=== PATIENT | female | born 1980 | race Two or more races ===

== ENCOUNTER 2023-10-16 16:03 | Emergency (ER) | payer MEDICAID ==
[~2023-10-16] VITALS: Ht 170.2 cm; Wt 138.1 kg
[2023-10-16 20:52] VITALS: BP 116/66; PULSE 84; RESP 16; TEMP 98.6; O2SAT 94
== END 2023-10-16 20:52 | disposition home or self-care (01) ==
LOC: ER 16:03
DX: M25.562 Pain in left knee (principal); Z88.1 Allergy status to other antibiotic agents
CPT/HCPCS: 93971

== ENCOUNTER 2024-03-13 04:38 | Inpatient (IN) | payer MEDICAID ==
[~2024-03-13] VITALS: Ht 170.2 cm; Wt 133.7 kg
[2024-03-13] VITALS (7 sets, daily range): BP systolic 150–167; BP diastolic 87–102; PULSE 66–79; RESP 16–18; TEMP 97.6–98.2; O2SAT 94–97
[2024-03-13 05:39] LABS: Basophils # (auto) 0 10 ^3/uL (0-0.2); Basophils % (auto) 0.3 % (0.0-2.0); Monocytes # (auto) 0.6 10 ^3/uL (0-1.3)
[2024-03-13 05:40] LABS: Anion Gap 5 (5-15); Calcium 8.7 mg/dL (8.7-10.4); Carbon Dioxide 27 mmol/L (20-30); Chloride 108 mmol/L (98-107); Potassium 3.7 mmol/L (3.5-5.1); Sodium 140 mmol/L (136-145)
[2024-03-13 05:43] LABS: Eosinophils # (auto) 0.2 10 ^3/uL (0-0.8); Eosinophils % (auto) 2.8 % (0.0-7.0); Hematocrit 28.9 % (36.0-46.0); Hemoglobin 9.4 g/dL (12.2-16.2); Lymphocytes # (auto) 1.7 10 ^3/uL (0.4-5.4); Lymphocytes % (auto) 19.9 % (10.0-50.0); Mean Corpuscular Hemoglobin 24.2 pg (28.0-32.0); Mean Corpuscular Hgb Conc. 32.7 g/dL (32.0-36.0); Mean Corpuscular Volume 74.1 fL (80.0-100.0); Monocytes % (auto) 6.8 % (0.0-12.0); Neutrophils % (auto) 70.2 % (37.0-80.0); Red Blood Cells 3.89 10^6/uL (4.0-5.20); Red Cell Distribution Width 18.9 % (11.8-14.3); White Blood Cell 8.5 10^3/uL (4.4-10.8)
[2024-03-13 05:46] LABS: BUN/Creatinine Ratio 22.1 (10.0-20.0); Blood Urea Nitrogen 17 mg/dL (9-23); Glucose 85 mg/dL (74-106)
[2024-03-13] MEDS: FUROSEMIDE 20 MG/2 ML VIAL IV ONE (06:21)
[2024-03-13] MEDS ORDERED: SEMA2INJ3 SC (07:41)
[2024-03-13] MEDS ORDERED: IBUP-1454 PO (07:41)
[2024-03-13] MEDS ORDERED: GABA-1308 PO (07:41)
[2024-03-13] MEDS ORDERED: FERR1TAB31 PO (07:41)
[2024-03-13] MEDS ORDERED: NITROGLYCERIN 0.4 MG SL TAB SL PRN (09:45)
[2024-03-13] MEDS ORDERED: FUROSEMIDE 20 MG/2 ML VIAL IV SCH (10:00)
[2024-03-13 10:29] LABS: Folate (Folic Acid) 9.69 ng/mL (>5.38)
[2024-03-13 10:30] LABS: Ferritin 7.7 ng/mL (10-291)
[2024-03-13 10:31] LABS: Thyroid Stimulating Hormone 2.4 uIU/mL (0.55-4.78)
[2024-03-13 10:32] LABS: INR 1.05 (0.9-1.15); Prothrombin Time 11.1 sec (9.3-11.8)
[2024-03-13 10:50] LABS: % Iron Saturation 26.3 % (15-50)
[2024-03-13] MEDS: METOPROLOL TARTRATE 25 MG TAB PO SCH (11:45)
[2024-03-13] MEDS: ENOXAPARIN SOD 150 MG/1 ML SYRINGE SC SCH (11:45)
[2024-03-13 12:21] LABS: Triglycerides 73 mg/dL (< 150)
[2024-03-13 12:22] LABS: LDL Cholesterol 50 mg/dL (< 100)
[2024-03-13 12:23] LABS: Cholesterol 102 mg/dL (< 200); HDL Cholesterol 43 mg/dL (40-59)
[2024-03-13] MEDS: hydrALAZINE HCL 20 MG/ML VL IV PRN (14:26)
[2024-03-13] MEDS: FUROSEMIDE 20 MG/2 ML VIAL IV SCH (18:46)
[2024-03-13] MEDS: ATORVASTATIN 20 MG TAB PO SCH (20:42)
[2024-03-13] MEDS: SACUBITRIL-VALSARTAN 24mg/26mg TAB PO SCH (20:42)
[2024-03-13] MEDS: ASPirin 81 mg TAB PO ONE (22:00)
[2024-03-14] VITALS (8 sets, daily range): BP systolic 138–149; BP diastolic 65–97; PULSE 67–88; RESP 16–20; TEMP 97.5–98.8; O2SAT 92–98
[2024-03-14 07:51] LABS: Basophils # (auto) 0 10 ^3/uL (0-0.2); Basophils % (auto) 0.3 % (0.0-2.0); Eosinophils # (auto) 0.3 10 ^3/uL (0-0.8); Eosinophils % (auto) 2.7 % (0.0-7.0); Hematocrit 33.1 % (36.0-46.0); Hemoglobin 10.6 g/dL (12.2-16.2); Lymphocytes # (auto) 1.6 10 ^3/uL (0.4-5.4); Lymphocytes % (auto) 16.6 % (10.0-50.0); Mean Corpuscular Hemoglobin 23.9 pg (28.0-32.0); Mean Corpuscular Hgb Conc. 32.1 g/dL (32.0-36.0); Mean Corpuscular Volume 74.6 fL (80.0-100.0); Monocytes # (auto) 0.6 10 ^3/uL (0-1.3); Neutrophils # (auto) 7.4 10 ^3/uL (1.6-8.6); Neutrophils % (auto) 74.4 % (37.0-80.0); Red Blood Cells 4.44 10^6/uL (4.0-5.20); Red Cell Distribution Width 18.8 % (11.8-14.3); White Blood Cell 9.9 10^3/uL (4.4-10.8)
[2024-03-14 08:00] LABS: Alanine Aminotransferase 17 U/L (7-40); Albumin 3.5 g/dL (3.2-4.8); Alkaline Phosphatase 61 U/L (46-116); Anion Gap 6 (5-15); Aspartate Aminotransferase 17 U/L (13-40); BUN/Creatinine Ratio 17.9 (10.0-20.0); Blood Urea Nitrogen 15 mg/dL (9-23); Calcium 9.1 mg/dL (8.7-10.4); Carbon Dioxide 28 mmol/L (20-30); Chloride 105 mmol/L (98-107); Glucose 86 mg/dL (74-106); Potassium 3.7 mmol/L (3.5-5.1); Sodium 139 mmol/L (136-145)
[2024-03-14 08:01] LABS: Bilirubin, Total 0.7 mg/dL (0.2-1.0); Total Protein 7.6 g/dL (5.7-8.2)
[2024-03-14] MEDS: ASPirin 81 mg TAB PO SCH (08:42)
[2024-03-14] MEDS: EMPAGLIFLOZIN 10 MG TAB PO SCH (08:42)
[2024-03-14] MEDS: ENOXAPARIN SOD 40 MG/0.4 ML SYRINGE SC SCH (08:43)
[2024-03-14] MEDS: IOHEXOL 350 MG/ML 100ML IJ ONE (11:44)
[2024-03-15] VITALS (8 sets, daily range): BP systolic 103–145; BP diastolic 52–89; PULSE 70–89; RESP 17–20; TEMP 97.9–98.7; O2SAT 92–97
[2024-03-15 06:46] LABS: Basophils # (auto) 0 10 ^3/uL (0-0.2); Basophils % (auto) 0.3 % (0.0-2.0); Eosinophils # (auto) 0.2 10 ^3/uL (0-0.8); Eosinophils % (auto) 2.4 % (0.0-7.0); Lymphocytes # (auto) 1.9 10 ^3/uL (0.4-5.4); Monocytes # (auto) 0.8 10 ^3/uL (0-1.3); Neutrophils # (auto) 6.6 10 ^3/uL (1.6-8.6); White Blood Cell 9.5 10^3/uL (4.4-10.8)
[2024-03-15 06:50] LABS: Hematocrit 34.3 % (36.0-46.0); Hemoglobin 11.1 g/dL (12.2-16.2); Lymphocytes % (auto) 19.9 % (10.0-50.0); Mean Corpuscular Hemoglobin 24.5 pg (28.0-32.0); Mean Corpuscular Hgb Conc. 32.3 g/dL (32.0-36.0); Mean Corpuscular Volume 75.8 fL (80.0-100.0); Neutrophils % (auto) 69.4 % (37.0-80.0); Red Blood Cells 4.53 10^6/uL (4.0-5.20); Red Cell Distribution Width 18.5 % (11.8-14.3)
[2024-03-15 07:46] LABS: Alanine Aminotransferase 16 U/L (7-40); Albumin 3.2 g/dL (3.2-4.8); Alkaline Phosphatase 56 U/L (46-116); Anion Gap 6 (5-15); Aspartate Aminotransferase 13 U/L (13-40); Bilirubin, Total 0.7 mg/dL (0.2-1.0); Blood Urea Nitrogen 14 mg/dL (9-23); Calcium 8.8 mg/dL (8.7-10.4); Carbon Dioxide 27 mmol/L (20-30); Chloride 105 mmol/L (98-107); Glucose 89 mg/dL (74-106); Potassium 3.8 mmol/L (3.5-5.1); Sodium 138 mmol/L (136-145)
[2024-03-15 07:50] LABS: BUN/Creatinine Ratio 16.9 (10.0-20.0)
[2024-03-16] VITALS (12 sets, daily range): BP systolic 111–139; BP diastolic 64–91; PULSE 67–89; RESP 12–18; TEMP 98–98.2; O2SAT 93–97
[2024-03-16 06:05] LABS: Chloride 104 mmol/L (98-107); Potassium 3.4 mmol/L (3.5-5.1); Sodium 139 mmol/L (136-145)
[2024-03-16 06:06] LABS: Anion Gap 5 (5-15); Carbon Dioxide 30 mmol/L (20-30)
[2024-03-16 06:09] LABS: Basophils # (auto) 0 10 ^3/uL (0-0.2); Basophils % (auto) 0.3 % (0.0-2.0); Eosinophils # (auto) 0.2 10 ^3/uL (0-0.8); Eosinophils % (auto) 2.5 % (0.0-7.0); Hematocrit 35.4 % (36.0-46.0); Hemoglobin 11.5 g/dL (12.2-16.2); Lymphocytes # (auto) 1.7 10 ^3/uL (0.4-5.4); Lymphocytes % (auto) 18.1 % (10.0-50.0); Mean Corpuscular Hemoglobin 23.9 pg (28.0-32.0); Mean Corpuscular Hgb Conc. 32.5 g/dL (32.0-36.0); Mean Corpuscular Volume 73.5 fL (80.0-100.0); Monocytes # (auto) 0.8 10 ^3/uL (0-1.3); Monocytes % (auto) 8.4 % (0.0-12.0); Neutrophils # (auto) 6.6 10 ^3/uL (1.6-8.6); Neutrophils % (auto) 70.7 % (37.0-80.0); Red Blood Cells 4.82 10^6/uL (4.0-5.20); Red Cell Distribution Width 18.9 % (11.8-14.3); White Blood Cell 9.3 10^3/uL (4.4-10.8)
[2024-03-16 06:11] LABS: Glucose 98 mg/dL (74-106)
[2024-03-16 06:12] LABS: BUN/Creatinine Ratio 21.4 (10.0-20.0); Blood Urea Nitrogen 21 mg/dL (9-23)
[2024-03-16 06:18] LABS: INR 1.09 (0.9-1.15); Partial Thromboplastin Time 28.5 SEC (24.5-34.5); Prothrombin Time 11.5 sec (9.3-11.8)
[2024-03-16] MEDS: HEPARIN IN NS 1000Units/500mL 1,500 ML ONE (10:46)
[2024-03-16] MEDS: IODIXANOL 320MG/ML 100ML BTL IV ONE (10:46)
[2024-03-16] MEDS: VERAPAMIL 2.5MG/ML INJ 2ML VIAL IV ONE (11:46)
[2024-03-16] MEDS: MIDAZOLAM HCL 2MG/2ML 2ml VIAL (1mg/ml) ONE (11:46)
[2024-03-16] MEDS: ANGIOMAX 250 MG VIAL IV ONE (11:46)
[2024-03-16] MEDS: fentaNYL CITRATE 100 MCG/2 ML VL ONE (11:46)
[2024-03-16] MEDS: HEPARIN SODIUM (PORCINE) 5000 UNITS/ML 1ML VIAL ONE (11:46)
[2024-03-16] MEDS: LIDOCAINE 2%HCL (LOCAL ANESTH.) INJ 20ML MDV ONE (11:47)
[2024-03-16] MEDS: SODIUM CHL 0.9% 50 ML ONE (11:47)
[2024-03-16] MEDS: POTASSIUM CHL 20 Meq TABLET PO ONE (19:50)
[2024-03-16] MEDS: FUROSEMIDE 40 MG/4 ML VIAL IV SCH (19:50)
[2024-03-17 05:00] VITALS: BP 115/69; PULSE 71; RESP 18; TEMP 98.3; O2SAT 94
[2024-03-17 05:49] LABS: Basophils # (auto) 0 10 ^3/uL (0-0.2); Basophils % (auto) 0.3 % (0.0-2.0); Eosinophils # (auto) 0.3 10 ^3/uL (0-0.8); Eosinophils % (auto) 3.5 % (0.0-7.0); Hemoglobin 11.4 g/dL (12.2-16.2); Neutrophils # (auto) 5.8 10 ^3/uL (1.6-8.6)
[2024-03-17 05:51] LABS: Hematocrit 35.1 % (36.0-46.0); Lymphocytes # (auto) 1.9 10 ^3/uL (0.4-5.4); Lymphocytes % (auto) 21.5 % (10.0-50.0); Mean Corpuscular Hgb Conc. 32.6 g/dL (32.0-36.0); Mean Corpuscular Volume 73.8 fL (80.0-100.0); Monocytes # (auto) 0.8 10 ^3/uL (0-1.3); Monocytes % (auto) 8.6 % (0.0-12.0); Neutrophils % (auto) 66.1 % (37.0-80.0); Red Blood Cells 4.76 10^6/uL (4.0-5.20); Red Cell Distribution Width 19.2 % (11.8-14.3); White Blood Cell 8.8 10^3/uL (4.4-10.8)
[2024-03-17 06:08] LABS: Alanine Aminotransferase 22 U/L (7-40); Albumin 3.3 g/dL (3.2-4.8); Alkaline Phosphatase 56 U/L (46-116); Anion Gap 6 (5-15); Aspartate Aminotransferase 19 U/L (13-40); BUN/Creatinine Ratio 24.4 (10.0-20.0); Bilirubin, Total 0.6 mg/dL (0.2-1.0); Blood Urea Nitrogen 22 mg/dL (9-23); Carbon Dioxide 29 mmol/L (20-30); Chloride 104 mmol/L (98-107); Glucose 88 mg/dL (74-106); Potassium 3.7 mmol/L (3.5-5.1); Sodium 139 mmol/L (136-145); Total Protein 7.1 g/dL (5.7-8.2)
[2024-03-17 08:00] VITALS: PULSE 67; PULSE 80; RESP 20; O2SAT 94
[2024-03-17 08:40] VITALS: BP 108/78; PULSE 80; RESP 20; TEMP 98.6; O2SAT 94
[2024-03-17] MEDS: ENOXAPARIN SOD 40 MG/0.4 ML SYRINGE SC SCH (10:00)
[2024-03-17] MEDS ORDERED: ATOR20TA50 PO (12:33)
[2024-03-17] MEDS ORDERED: EMPA1TAB PO (12:33)
[2024-03-17] MEDS ORDERED: ASPI-325 PO (12:33)
[2024-03-17] MEDS ORDERED: FURO1TAB33 PO (12:33)
[2024-03-17] MEDS ORDERED: SACU1TAB PO (12:33)
[2024-03-17] MEDS ORDERED: METO25TA36 PO (12:33)
[2024-03-17 13:05] VITALS: BP 125/92; PULSE 70; RESP 18; TEMP 97.8; O2SAT 93
[2024-03-17 14:21] VITALS: BP 125/59; PULSE 70; RESP 18; TEMP 97.8; O2SAT 93
[2024-03-17] MEDS ORDERED: LOSA-534 PO (16:34)
== END 2024-03-17 15:00 | disposition home or self-care (01) | DRG 192 ==
LOC: ER 04:38 → TELE 09:56 → TELE-CENTR 11:23
PROVIDERS: ADMIT Internal Medicine; ATTEND Internal Medicine
PROC: 4A023N7 Measurement of Cardiac Sampling and Pressure, Left Heart, Percutaneous Approach (ICD-10-PCS; principal; 2024-03-16)
PROC: B211YZZ Fluoroscopy of Multiple Coronary Arteries using Other Contrast (ICD-10-PCS; 2024-03-16)
DX: I11.0 Hypertensive heart disease with heart failure (principal); I21.A1 Myocardial infarction type 2; J12.9 Viral pneumonia, unspecified; D64.9 Anemia, unspecified; E11.9 Type 2 diabetes mellitus without complications; E66.01 Morbid (severe) obesity due to excess calories; I25.10 Atherosclerotic heart disease of native coronary artery without angina pectoris; G47.30 Sleep apnea, unspecified; I50.31 Acute diastolic (congestive) heart failure; I16.1 Hypertensive emergency; Z98.51 Tubal ligation status; Z88.8 Allergy status to other drugs, medicaments and biological substances; Z90.49 Acquired absence of other specified parts of digestive tract; Z68.42 Body mass index [BMI] 45.0-49.9, adult; Z82.49 Family history of ischemic heart disease and other diseases of the circulatory system; Z79.82 Long term (current) use of aspirin
CPT/HCPCS: 36415; 71045; 71275; 76856; 80048; 80053; 80061; 82607; 82728; 82746; 83036; 83540; 83550; 83615; 83735; 83880; 84443; 84484; 84702; 85025; 85045; 85379; 85610; 85730; 93005; 93306; 93458; 93970; 99152; G0378; J2250; Q9967

== ENCOUNTER 2024-10-08 00:43 | Emergency (ER) | payer MEDICAID ==
[~2024-10-08] VITALS: Ht 167.6 cm; Wt 138.8 kg
[~2024-10-08 00:43] MED LIST: ASPI-325 PO; ATOR20TA50 PO; EMPA1TAB PO; FERR1TAB31 PO; FURO1TAB33 PO; GABA-1308 PO; IBUP-1454 PO; LOSA-534 PO; METO25TA36 PO; SEMA2INJ3 SC
[2024-10-08 01:45] VITALS: BP 153/75; PULSE 72; RESP 18; TEMP 98.3; O2SAT 99
--- NOTE | 2024-10-08 01:54 | DVH ---
CHEST RADIOGRAPH Indication: COUGH Technique: Frontal and lateral view of the chest was obtained Comparison: None FINDINGS: Lines and Tubes: None Lungs: Possible mild opacity noted at left lung base which may represent pneumonia. Right lung is c lear. Pleura: No effusion. No pneumothorax. Cardiomediastinal contours: Unremarkable Bones: Unremarkable IMPRESSION: Possible mild opacity at left lung base which may represent pneumonia.
[2024-10-08 01:57] LABS: Basophils # (auto) 0 10 ^3/uL (0-0.2); Basophils % (auto) 0.2 % (0.0-2.0); Eosinophils # (auto) 0.3 10 ^3/uL (0-0.8); Eosinophils % (auto) 2.9 % (0.0-7.0); Hematocrit 32.6 % (36.0-46.0); Lymphocytes # (auto) 2.1 10 ^3/uL (0.4-5.4); Lymphocytes % (auto) 20.6 % (10.0-50.0); Mean Corpuscular Hemoglobin 21.4 pg (28.0-32.0); Mean Corpuscular Hgb Conc. 30.6 g/dL (32.0-36.0); Monocytes # (auto) 0.6 10 ^3/uL (0-1.3); Neutrophils # (auto) 7.2 10 ^3/uL (1.6-8.6); Neutrophils % (auto) 70.3 % (37.0-80.0); Platelet Count (auto) 317 10^3/uL (140-450); Red Blood Cells 4.65 10^6/uL (4.0-5.20); Red Cell Distribution Width 17.2 % (11.8-14.3); White Blood Cell 10.3 10^3/uL (4.4-10.8)
[2024-10-08 02:03] LABS: Chloride 106 mmol/L (98-107); Sodium 139 mmol/L (136-145)
[2024-10-08 02:04] LABS: Anion Gap 5 (5-15); Carbon Dioxide 28 mmol/L (20-31)
[2024-10-08 02:05] LABS: Calcium 9.3 mg/dL (8.7-10.4)
[2024-10-08 02:10] LABS: BUN/Creatinine Ratio 21.9 (10.0-20.0); Blood Urea Nitrogen 16 mg/dL (9-23)
[2024-10-08 02:15] LABS: Glucose 111 mg/dL (74-106)
[2024-10-08] MEDS: cefTRIAXone SOD 1,000 MG VL IM ONE (02:15)
[2024-10-08] MEDS: methylPREDNISolone SOD SUCC 125 MG/2 ML VL IM ONE (02:15)
[2024-10-08] MEDS ORDERED: AZIT-43 PO (02:19)
[2024-10-08] MEDS ORDERED: AMOX875T4 PO (02:19)
[2024-10-08] MEDS ORDERED: PRED10TA PO (02:19)
--- NOTE | 2024-10-08 02:19 | ED.PDOC ---
SOB-HPI HPI Comments 44-year-old male presents to ER with complaints of cough x1 month. Patient reports that she has been experiencing a cough x1 month that became worse and productive with yellow phlegm x3 days and sore throat x 1 day. Denies use of medications for current symptoms. Patient presents to ER ambulatory on arrival, with steady gait, in no distress. 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: No Pertinent OUTSIDE FOOD SERVER History Family History Family History: Reviewed,noncontributory to illness, Unknown Social History Smoker: Non-Smoker Alcohol: Denies ETOH Use Drugs: Denies Drug Use Lives In: Home Constitutional: denies: chills, diaphoresis, fatigue, fever, malaise, sweats, weakness, others EENTM: reports: others ( STATED IN HPI) Respiratory: reports: others ( STATED IN HPI) Cardiovascular: denies: chest pain, dizzy spells, diaphoresis, Dyspnea on exertion, edema, irregular heart beat, left arm pain, lightheadedness, palpitations, PND, syncope, others Gastrointestinal: denies: abdomen distended, abdominal pain, blood streaked bowels, constipated, diarrhea, dysphagia, difficulty swallowing, hematemesis, melena, nausea, poor appetite, poor fluid intake, rectal bleeding, rectal pain, vomiting, others Genitourinary: denies: abnormal vagina bleeding, burning, dyspareunia, dysuria, flank pain, frequency, hematuria, incontinence, pain, , vagina disc harge, urgency, others Neurological: denies: dizziness, fainting, headache, left sided numbness, left sided weakness, numbness, paresthesia, pre-existing deficit, right sided numbness, right sided weakness, seizure, speech problems, tingling, tremors, weakness, others Musculoskeletal: denies: back pain, gout, joint pain, joint swelling, muscle pain, muscle stiffness, neck pain, others Integumetry: denies: bruises, change in color, change in hair/nails, dryness, laceration, lesions, lumps, rash, wounds, others Allergic/Immunocompromised: denies: Difficulty Healing, Frequent Infections, Hives, Itching, others Hematologic/Lymphatic: denies: anemia, blood clots, easy bleeding, easy bruising, swollen glands, others Endocrine: denies: excessive hunger, excessive sweating, excessive thirst, excessive urination, flushing, intolerance to cold, intolerance to heat, unexplained weight gain, unexplained weight loss, others Psychiatric: denies: anxiety, bipolar disorder, depression, hopeless, panic disorder, schizophrenia, sleepless, suicidal, others Physical Exam General Appearance: No Apparent Distress, Obese HEENT: PERRL/EOMI, Pharyngeal Erythema (MILD TONSILLAR SWELLING/ERYTHEMA NOTED BILATERALLY WITHOUT EXUDATES. UVULA-NORMAL), TMs Normal Neck: Full Range of Motion, Non-Tender, Normal Respiratory: Chest Non-Tender, Lungs Clear, No Accessory Muscle Use, No Respiratory Distress, Normal Breath Sounds Cardiovascular: No Murmur, No Gallop, Regular Rate/Rhythm Breast Exam: Deferred Gastrointestinal: NOT DONE Genitalia: Deferred Pelvic: Deferred Rectal: Deferred Extremities: Normal capillary refill, Normal range of motion Neurologic: Alert, chiller technician II-XII nml as Tested, No Motor Deficits, Normal Affect, Normal Mood, No Sensory Deficits Cerebellar Function: Normal Reflexes: Normal Skin: Dry, Normal Color, Warm Peripheral Pulses: 2+ Radial (R), 2+ Radial (L), 2+ Brachial (R), 2+ Brachial (L) Lymphatic: No Adenopathy Was a procedure done? Was a procedure done?: No Sedation Sedation?: No Differential Dx Differential Diagnosis: Pneumonia, Pulmonary Embolism, Respiratory Distress, URI X-Ray, Labs, Meds, VS Vital Signs Date Time Temp Pulse Resp B/P (MAP) Pulse Ox O2 Delivery O2 Flow Rate FiO2 10/08/24 01:45 98.3 72 18 153/75 (101) 99 98.3 10/08/24 01:45 72 18 99 Room Air 10/08/24 01:20 98.3 72 18 153/75 (101) 99 10/08/24 01:20 18 99 Room Air* 0 21 Lab Test 10/08/24 01:42 Range/Units White Blood Count 10.3 4.4-10.8 10^3/uL Red Blood Count 4.65 4.0-5.20 10^6/uL Hemoglobin 10.0 L 12.2-16.2 g/dL Hematocrit 32.6 L 36.0-46.0 % Mean Corpuscular Volume 70.0 L 80.0-100.0 fL Mean Corpuscular Hemoglobin 21.4 L 28.0-32.0 pg Mean Corpuscular Hemoglobin Concent 30.6 L 32.0-36.0 g/dL Red Cell Distribution Width 17.2 H 11.8-14.3 % Platelet Count 317 140-450 10^3/uL Mean Platelet Volume 8.0 6.9-10.8 fL Neutrophils (%) (Auto) 70.3 37.0-80.0 % Lymphocytes (%) (Auto) 20.6 10.0-50.0 % Monocytes (%) (Auto) 6.0 0.0-12.0 % Eosinophils (%) (Auto) 2.9 0.0-7.0 % Basophils (%) (Auto) 0.2 0.0-2.0 % Neutrophils # (Auto) 7.2 1.6-8.6 10 ^3/uL Lymphocytes # (Auto) 2.1 0.4-5.4 10 ^3/uL Monocytes # (Auto) 0.6 0-1.3 10 ^3/uL Eosinophils # (Auto) 0.3 0-0.8 10 ^3/uL Basophils # (Auto) 0 0-0.2 10 ^3/uL Nucleated Red Blood Cells 0.0 % Sodium Level 139 136-145 mmol/L Potassium Level 4.0 3.5-5.1 mmol/L Chloride Level 106 98-107 mmol/L Carbon Dioxide Level 28 20-31 mmol/L Anion Gap 5 5-15 Blood Urea Nitrogen 16 9-23 mg/dL Creatinine 0.73 0.550-1.02 mg/dL Glomerular Filtration Rate Calc 103 >90 mL/min BUN/Creatinine Ratio 21.9 H 10.0-20.0 Serum Glucose 111 H 74-106 mg/dL Calcium Level 9.3 8.7-10.4 mg/dL Current Medications Medications (Trade) Dose Ordered Sig/Braydon Route Start Time Stop Time Status Last Admin Ceftriaxone Sodium (Rocephin) 1,000 mg ONCE ONCE IM 2/27/25 02:15 10/08/24 02:16 DC 10/08/24 02:15 Methylprednisolone Sodium Succinate (Solu Medrol) 125 mg ONCE ONCE IM 10/08/24 02:15 10/08/24 02:16 DC 10/08/24 02:15 PATIENT: TATE HOLLAND JACCT: [id number]: [id number] : 1980 LOC: ER ROOM / BED: / AGE / SEX: 44 / F ADM STATUS: REG ER SERVICE 3 ORDERING PHYSICIAN: ANA GREWAL PROCEDURE(s): CXR2 - CHEST TWO VIEWS ROUTINE REASON: COUGH ORDER NUMBER(s): [id number], ACCESSION NUMBER(s): [id number] CHEST RADIOGRAPH Indication: COUGH Technique: Frontal and lateral view of the chest was obtained Comparison: None FINDINGS: Lines and Tubes: None Lungs: Possible mild opacity noted at left lung base which may represent pneumonia. Right lung is clear. Pleura: No effusion. No pneumothorax. Cardiomediastinal contours: Unremarkable Bones: Unremarkable IMPRESSION: Possible mild opacity at left lung base which may represent pneumonia. ATED BY: ABDI VALLES MD DICTATED DATE/TIME: 10/08/24151 SIGNED BY: ABDI VALLES MD SIGNED DATE/TIME: 10/08/24151 CC: CBC [id number], HEMOGLOBIN 10.0 BMP REVIEWED WITHOUT ANY SIGNIFICANT ABNORMALITIES CHEST X-RAY REVIEWED ROCEPHIN 1 G IM ORDERED SOLU-MEDROL 125 MG IM ORDERED PATIENT HAD IMPROVEMENT IN SYMPTOMS, DENIED ANY SHORTNESS OF BREATH AND NONTOXIC APPEARING/IN NO DISTRESS DURING ER VISIT/PRIOR TO DISCHARGE ADVISED TO FOLLOW UP WITH PCP IN 1-2 DAYS PATIENT VERBALIZED UNDERSTANDING AND AGREEABLE WITH CURRENT PLAN OF CARE ADVISED TO RETURN TO ER IMMEDIATELY IF SYMPTOMS WORSEN Time of 1ST Reevaluation: 01:34 Reevaluation 1ST: N/A Time of 2ND Reevaluation: 02:10 Reevaluation 2ND: Improved Patient Education/Counseling: Diagnosis, Treatment, Prognosis, Need For Follow Up Family Education/Counseling: No Family Present Departure 1 Departure Time of Disposition: 02:12 Impression: Primary Impression: Pneumonia Qualified Codes: J18.9 - Pneumonia, unspecified organism Additional Impression: Acute tonsillitis Qualified Codes: J03.90 - Acute tonsillitis, unspecified Disposition: 01 HOME / SELF CARE / HOMELESS Condition: Stable e-Prescriptions Acetaminophen (Acetaminophen) 500 Mg Tab 500 MG PO Q4HPRN, #30 TAB 0 Refills Prov: ANA GREWAL 10/08/24 Prednisone (Prednisone) 10 Mg Tab 10 MG PO BID for 5 Days, #10 TAB 0 Refills Prov: ANA GREWAL 10/08/24 Amoxicillin & Pot Clavulanate (Amoxicillin/Potassium Cla) 875 Mg Tab 1 TAB PO BID for 5 Days, #10 TAB 0 Refills Prov: ANA GREWAL 10/08/24 Azithromycin (Azithromycin) 250 Mg Tab 250 MG PO DAILY MDD 500 for 5 Days, #6 TAB 0 Refills 2 TABLETS ORALLY ON DAY ONE, THEN 1 TABLET ORALLY DAILY FOR 4 DAYS Prov: ANA GREWAL 10/08/24 Discharged With: Self Critical Care Note Critical Care Time?: No Stability Stability form required: No Heart Score Heart Score: Heart Score Response (Comments) Value History N/A 0 EKG N/A 0 Age N/A 0 Risk Factors N/A 0 Troponin N/A 0 Total 0 ANA GREWAL Oct 08, 2024 02:19
[2024-10-08] MEDS ORDERED: ACET500T58 PO (02:28)
== END 2024-10-08 02:29 | disposition home or self-care (01) ==
LOC: ER 00:43
DX: J18.9 Pneumonia, unspecified organism (principal); J03.90 Acute tonsillitis, unspecified; I11.0 Hypertensive heart disease with heart failure; I50.9 Heart failure, unspecified; E11.9 Type 2 diabetes mellitus without complications; Z90.49 Acquired absence of other specified parts of digestive tract; Z98.51 Tubal ligation status; Z98.890 Other specified postprocedural states
CPT/HCPCS: 36415; 71046; 80048; 85025; 96372; 99284; J0696; J2919

== ENCOUNTER 2024-11-13 08:24 | Emergency (ER) | payer MEDICAID ==
[~2024-11-13] VITALS: Ht 170.2 cm; Wt 142.7 kg
[~2024-11-13 08:24] MED LIST changes: +ACET500T58 PO; +AMOX875T4 PO; +AZIT-43 PO; +PRED10TA PO
[2024-11-13 08:58] LABS: Urine Bacteria None Seen /hpf (None Seen)
--- NOTE | 2024-11-13 09:01 | ED.PDOC ---
GI ASSESSMENT HPI Comments 44 year old female presents to the ED with chief complaint of abdominal pain. Patient reports that she has been experiencing periumbilical/left sided abdominal cramping for the past 3 days with associated nausea since today. Patient relays that she has history of umbilical hernia for the past 2 years, but she has never had it repaired as of now. Patient denies any vomiting, diarrhea, chest pain, SOB, fever, chills, or dysuria. Chief Complaint: Abdominal Pain Time Seen by MD: 08:56 Primary Care Provider: TY Reviewed Notes: Nurses Notes, Medications, Allergies Allergies: Coded Allergies: Levofloxacin (Verified Allergy, Unknown, 10/16/23) Home Meds Active Scripts Acetaminophen (Acetaminophen) 500 Mg Tab, 500 MG PO Q4HPRN, #30 TAB 0 Refills Prov:ANA GREWAL 10/08/24 Prednisone (Prednisone) 10 Mg Tab, 10 MG PO BID for 5 Days, #10 TAB 0 Refills Prov:ANA GREWAL 10/08/24 Amoxicillin & Pot Clavulanate (Amoxicillin/Potassium Cla) 875 Mg Tab, 1 TAB PO BID for 5 Days, #10 TAB 0 Refills Prov:ANA GREWAL 10/08/24 Azithromycin (Azithromycin) 250 Mg Tab, 250 MG PO DAILY MDD 500 for 5 Days, #6 TAB 0 Refills 2 TABLETS ORALLY ON DAY ONE, THEN 1 TABLET ORALLY DAILY FOR 4 DAYS Prov:ANA GREWAL 10/08/24 Losartan Potassium (Losartan Potassium) 50 Mg Tab, 1 TAB PO DAILY for 30 Days, #30 TAB 3 Refills Prov:VARGAS MAR MD 03/17/24 Furosemide (Lasix) 20 Mg Tb, 1 TAB PO QAM for 30 Days, #30 TAB 3 Refills Prov:VARGAS MAR MD 03/17/24 Metoprolol Succinate (Toprol Xl) 25 Mg Tab, 25 MG PO DAILY for 30 Days, #30 TAB 3 Refills Prov:VARGAS MAR MD 03/17/24 Atorvastatin Calcium (ATORVASTATIN CALCIUM) 20 Mg Tab, 20 MG PO HS for 30 Days, #30 TAB 3 Refills Prov:VARGAS MAR MD 03/17/24 Aspirin (Aspirin Low Dose) 81 Mg Tab, 81 MG PO DAILY for 30 Days, #30 TAB 3 Refills Prov:VARGAS MAR MD 03/17/24 Empagliflozin (Jardiance) 10 Mg Tab, 10 MG PO DAILY for 30 Days, #30 TAB 3 Refills Prov:VARGAS MAR MD 03/17/24 Reported Medications Gabapentin (Gabapentin) 100 Mg Cap, 100 MG PO BID, MG 03/13/24 Ferrous Gluconate (IRON) 27 Mg Tab, 27 MG PO, TAB 03/13/24 Ibuprofen (Ibuprofen) 600 Mg Tab, 600 MG PO, MG 0 Refills 03/13/24 Semaglutide (Ozempic) 2 Mg/3 Ml Inj, 2 MG SC, INJ 03/13/24 Information Source: Patient Mode of Arrival: Ambulatory Timing: Days Duration: Since onset Prehospital treatment: None Quality: Cramping Vomitus: None Stool: Loose Severity: Moderate Recent: None Recent Hx of: None Pain Location: LLQ, Periumbilical Modifying Factors: Nothing Associated sign and symptoms: Nausea Past Medical History PAST MEDICAL HISTORY: Anemia, CHF, DM, HTN Past Medical History (Other): Umbilical hernia Surgical History: Cholecystectomy, Tubal Ligation 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: No Pertinent 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 Family History Family History: Reviewed,noncontributory to illness, Unknown Social History Smoker: Non-Smoker Alcohol: Denies ETOH Use Drugs: Denies Drug Use Lives In: Home Constitutional: denies: chills, diaphoresis, fatigue, fever, malaise, sweats, weakness, others EENTM: denies: blurred vision, double vision, ear bleeding, ear discharge, ear drainage, ear pain, ear ringing, eye pain, eye redness, hearing loss, mouth pain, mouth swelling, nasal discharge, nose bleeding, nose congestion, nose pain, photophobia, tearing, throat pain, throat swelling, voice changes, others Respiratory: denies: cough, hemoptysis, orthopnea, SOB at rest, shortness of breath, SOB with excertion, stridor, wheezing, others Cardiovascular: denies: chest pain, dizzy spells, diaphoresis, Dyspnea on exertion, edema, irregular heart beat, left arm pain, lightheadedness, palpitations, PND, syncope, others Gastrointestinal: reports: abdominal pain, nausea; denies: abdomen distended, blood streaked bowels, constipated, diarrhea, dysphagia, difficulty swallowing, hematemesis, melena, poor appetite, poor fluid intake, rectal bleeding, rectal pain, vomiting, others Genitourinary: denies: abnormal vagina bleeding, burning, dyspareunia, dysuria, flank pain, frequency, hematuria, incontinence, pain, , vagina discharge, urgency, others Neurological: denies: dizziness, fainting, headache, left sided numbness, left sided weakness, numbness, paresthesia, pre-existing deficit, right sided numbness, right sided weakness, seizure, speech problems, tingling, tremors, weakness, others Musculoskeletal: denies: back pain, gout, joint pain, joint swelling, muscle pa in, muscle stiffness, neck pain, others Integumetry: denies: bruises, change in color, change in hair/nails, dryness, laceration, lesions, lumps, rash, wounds, others Allergic/Immunocompromised: denies: Difficulty Healing, Frequent Infections, Hives, Itching, others Hematologic/Lymphatic: denies: anemia, blood clots, easy bleeding, easy bruising, swollen glands, others Endocrine: denies: excessive hunger, excessive sweating, excessive thirst, excessive urination, flushing, intolerance to cold, intolerance to heat, unexplained weight gain, unexplained weight loss, others Psychiatric: denies: anxiety, bipolar disorder, depression, hopeless, panic disorder, schizophrenia, sleepless, suicidal, others All Other Systems: Reviewed and Negative Physical Exam General Appearance: No Apparent Distress, Normal HEENT: Normal ENT Inspection, Pharynx Normal, TMs Normal Neck: Full Range of Motion, Non-Tender, Normal, Normal Inspection Respiratory: Chest Non-Tender, Lungs Clear, No Accessory Muscle Use, No Respiratory Distress, Normal Breath Sounds Cardiovascular: No Edema, No JVD, No Murmur, No Gallop, Normal Peripheral Pulses, Regular Rate/Rhythm Breast Exam: Deferred Gastrointestinal: No Organomegaly, No Pulsatile Mass, Normal Bowel Sounds, Soft, Tenderness (Diffuse tenderness) Genitalia: Deferred Pelvic: Deferred Rectal: Deferred Extremities: No calf tenderness, Normal capillary refill, Normal inspection, Normal range of motion, Non-tender, No pedal edema Musculoskeletal : Apperance: Normal Neurologic: Alert, supervisor 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 Was a procedure done?: No GI differential Dx Differential Diagnosis: Cholecystitis, Constipation, Gastritis/PUD, Gastroenteritis, Dehydration, Viral X-Ray, Labs, Meds, VS Vital Signs Date Time Temp Pulse Resp B/P (MAP) Pulse Ox O2 Delivery O2 Flow Rate FiO2 11/13/24 09:21 Room Air* 0 21 11/13/24 09:14 98.8 70 18 161/99 (119) 97 98.8 11/13/24 09:14 70 18 97 Room Air 11/13/24 08:35 97.6 74 20 150/89 (109) 96 97.6 Lab Test 11/13/24 09:08 11/13/24 08:38 Range/Units White Blood Count 9.7 4.4-10.8 10^3/uL Red Blood Count 4.75 4.0-5.20 10^6/uL Hemoglobin 9.9 L 12.2-16.2 g/dL Hematocrit 32.5 L 36.0-46.0 % Mean Corpuscular Volume 68.5 L 80.0-100.0 fL Mean Corpuscular Hemoglobin 20.9 L 28.0-32.0 pg Mean Corpuscular Hemoglobin Concent 30.5 L 32.0-36.0 g/dL Red Cell Distribution Width 17.6 H 11.8-14.3 % Platelet Count 299 140-450 10^3/uL Mean Platelet Volume 7.9 6.9-10.8 fL Neutrophils (%) (Auto) 69.6 37.0-80.0 % Lymphocytes (%) (Auto) 22.3 10.0-50.0 % Monocytes (%) (Auto) 5.7 0.0-12.0 % Eosinophils (%) (Auto) 2.1 0.0-7.0 % Basophils (%) (Auto) 0.3 0.0-2.0 % Neutrophils # (Auto) 6.8 1.6-8.6 10 ^3/uL Lymphocytes # (Auto) 2.2 0.4-5.4 10 ^3/uL Monocytes # (Auto) 0.6 0-1.3 10 ^3/uL Eosinophils # (Auto) 0.2 0-0.8 10 ^3/uL Basophils # (Auto) 0 0-0.2 10 ^3/uL Nucleated Red Blood Cells 0.0 % Sodium Level 137 136-145 mmol/L Potassium Level 4.1 3.5-5.1 mmol/L Chloride Level 104 98-107 mmol/L Carbon Dioxide Level 28 20-31 mmol/L Anion Gap 5 5-15 Blood Urea Nitrogen 13 9-23 mg/dL Creatinine 0.69 0.550-1.02 mg/dL Glomerular Filtration Rate Calc 109 >90 mL/min BUN/Creatinine Ratio 18.8 10.0-20.0 Serum Glucose 113 H 74-106 mg/dL Calcium Level 9.4 8.7-10.4 mg/dL Urine Color Light-yellow Yellow Urine Clarity Clear Clear Urine pH 6.5 5.0-9.0 Urine Specific [place] 1.018 1.001-1.035 Urine Protein Negative Negative Urine Ketones Negative Negative Urine Blood 1+ H Negative /uL Urine Nitrite Negative Negative Urine Bilirubin Negative Negative Urine Urobilinogen Normal Negative mg/dL Urine Leukocyte Esterase Negative Negative /uL Urine RBC 6 0 - 4 /hpf Urine Microscopic WBC < 1 0-5 /HPF Urine Squamous Epithelial Cells Few <5 /hpf Urine Bacteria None seen None Seen /hpf Urine Yeast (Budding) Occasional None Seen /hpf Urine Glucose Normal Normal mg/dL CT Abd/Pel W/ IV Con:FINDINGS: There is fatty infiltration of the liver. The gallbladder is surgically absent. The pancreas, kidneys, adrenal glands, and spleen appear within normal limits. There is no evidence of abdominal lymphadenopathy. There is no free fluid or free air. The stomach grossly appears unremarkable. The small and large bowel loops demonstrate normal caliber and distribution. There are anastomotic sutures in the rectosigmoid colon. There is moderate amount of stool in the colon. A normal appearing appendix is seen in the right lower quadrant abdomen. The abdominal aorta and IVC appear within normal limits. The bladder appears within normal limits the degree of distention. Uterus appears within normal limits. There is a 3 cm right ovarian cyst. There is no evidence of a pelvic mass or lymphadenopathy. There is no free fluid collection. Lung bases are clear. There is no acute osseous abnormality. There is a moderate size fat containing midline ventral hernia with the neck measuring 4.8 cm in transverse diameter. IMPRESSION: 1. There is no acute process in the abdomen and pelvis. 2. Hepatic steatosis. 3. Moderate amount stool in the colon. 4. Moderate size fat containing midline ventral hernia. 5. 3 cm right ovarian cyst. Images Reviewed?: Images reviewed and evaluated by me Time of 1ST Reevaluation: 09:56 Reevaluation 1ST: Unchanged Patient Education/Counseling: Diagnosis, Treatment Family Education/Counseling: No Family Present Additional Information Previous medical encounters reviewed: 10/08/24 for pneumonia The following tests were ordered, and results were reviewed by me: UA, CBC, BMP, CT Abd/Pel W/ IV Con Additional Information was gathered from interviewing the following independent historians: None I reviewed and agreed with the following test results read by other providers: CT Abd/Pel W/ IV Con I discussed treatment and results with medical personnel and: Patient Comprehensive systems review obtained and negative except for what is stated in the HPI. Departure 1 Departure Time of Disposition: 10:52 (Patient presented with abdominal pain that was co ncerning for possible appendicits, gastritis, cholecystitis, colitis, gastroenteritis, or orther possible surgical emergency. Data: 1. I ordered and reviewed the result of at least 3 labs including a CBC, BMP, and Urinalysis. 2. I independently interpreted the following tests: CT Abdoment and Pelvis is concerning for constipation, abdominal wall hernia .Risk:This patient has a high risk of morbidity due to further diagnostic testing or treatment and may suffer from an acute abdominal process disorder. Fortunately workup reveals likely constipation and patient can be safely discharged to home with outpatient follow up.) Impression: Primary Impression: Constipation Qualified Codes: K59.00 - Constipation, unspecified Additional Impression: Abdominal wall hernia Disposition: 01 HOME / SELF CARE / HOMELESS Condition: Stable Additional Instructions: Fortunately your CT scan today was benign other than your hernia, an ovarian cyst, and a large volume of stool. It is important to stay well rested and well hydrated. You should eat a high-fiber diet. You can take [id number] MiraLax daily. This will help you have bowel movements. For pain you can take the followinam: Ibuprofen 400mg with food Noon: Acetaminophen 1000mg 4pm: Ibuprofen 400mg with food 8pm: Acetaminophen 1000mg You should follow up with your regular doctor within one week to ensure you are doing better. If your symptoms worsen or you have any other concerns then please return to the ER. Discharged With: Self Critical Care Note Critical Care Time?: No Stability Stability form required: No Heart Score Heart Score: Heart Score Response (Comments) Value History N/A 0 EKG N/A 0 Age N/A 0 Risk Factors N/A 0 Troponin N/A 0 Total 0 I personally scribed for LORETTA HIDALGO MD ([email or web address]) on 11/13/24 at 09:01. Electronically submitted by Perry Langston ([email or web address]). I personally scribed for LORETTA HIDALGO MD ([email or web address]) on 11/13/24 at 10:44. Electronically submitted by Perry Langston ([email or web address]). LORETTA HIDALGO MD Nov 13, 2024 09:01
[2024-11-13 09:23] LABS: Urine Blood 1+ /uL (Negative); Urine Budding Yeast OCCASIONAL /hpf (None Seen); Urine Clarity Clear (Clear); Urine Color Light-Yellow (Yellow); Urine Protein, UAD Negative (Negative); Urine Specific Gravity 1.018 (1.001-1.035); Urine Squamous Epithelial Cell FEW /hpf (<5); Urine Urobilinogen Normal (Negative); Urine WBC < 1 /HPF (0-5); Urine pH 6.5 (5.0-9.0)
[2024-11-13 09:33] LABS: Basophils # (auto) 0 10 ^3/uL (0-0.2); Chloride 104 mmol/L (98-107); Eosinophils # (auto) 0.2 10 ^3/uL (0-0.8); Hemoglobin 9.9 g/dL (12.2-16.2); Lymphocytes # (auto) 2.2 10 ^3/uL (0.4-5.4); Neutrophils # (auto) 6.8 10 ^3/uL (1.6-8.6); Potassium 4.1 mmol/L (3.5-5.1); Sodium 137 mmol/L (136-145)
[2024-11-13 09:34] LABS: Anion Gap 5 (5-15); Basophils % (auto) 0.3 % (0.0-2.0); Carbon Dioxide 28 mmol/L (20-31); Eosinophils % (auto) 2.1 % (0.0-7.0); Hematocrit 32.5 % (36.0-46.0); Lymphocytes % (auto) 22.3 % (10.0-50.0); Mean Corpuscular Hemoglobin 20.9 pg (28.0-32.0); Mean Corpuscular Hgb Conc. 30.5 g/dL (32.0-36.0); Mean Corpuscular Volume 68.5 fL (80.0-100.0); Monocytes # (auto) 0.6 10 ^3/uL (0-1.3); Monocytes % (auto) 5.7 % (0.0-12.0); Neutrophils % (auto) 69.6 % (37.0-80.0); Platelet Count (auto) 299 10^3/uL (140-450); Red Blood Cells 4.75 10^6/uL (4.0-5.20); Red Cell Distribution Width 17.6 % (11.8-14.3); White Blood Cell 9.7 10^3/uL (4.4-10.8)
[2024-11-13 09:35] LABS: Calcium 9.4 mg/dL (8.7-10.4)
[2024-11-13 09:40] LABS: BUN/Creatinine Ratio 18.8 (10.0-20.0); Blood Urea Nitrogen 13 mg/dL (9-23)
[2024-11-13 09:41] LABS: Glucose 113 mg/dL (74-106)
[2024-11-13] MEDS: IOHEXOL 300 MG/ML 100ML BOTTLE IJ ONE (09:57)
--- NOTE | 2024-11-13 10:30 | DVH ---
Exam: CT CT AB PEL WITH IV CON ONLY History: sharp left sided abdominal pain TECHNIQUE: Multiple contiguous axial CT images of the abdomen and pelvis were obtained with intraveno us contrast. The images were reformatted to generate coronal and sagittal reconstructions. 100 cc of Omnipaque 300 contrast was injected intravenously. All CT scans at this medical facility are performed using dose modulation techniques as appropriate t o a performed exam including the following:Automated exposure control was utilized; adjustment of the MA and/or KV according to patient size; and use of iterative reconstruction technique. Radiation Dose Information: CT Dose: CTDI volume is 27 mGy. Dose-length product is 1441 mGy*cm Comparison: None FINDINGS: There is fatty infiltration of the liver. The gallbladder is surgically absent. The pancreas, kidn eys, adrenal glands, and spleen appear within normal limits. There is no evidence of abdominal lymphadenopathy. There is no free fluid or free air. The stomach grossly appears unremarkable. The small and large bowel loops demonstrate normal caliber and distribution. There are anastomotic sutures in the rectosigmoid colon. There is moderate amount of stool in the colon. A normal appearing appendix is seen in the right lower quadrant abdomen. The abdominal aorta and IVC appear within normal limits. The bladder appears within normal limits the degree of distention. Uterus appears within normal limit s. There is a 3 cm right ovarian cyst. There is no evidence of a pelvic mass or lymphadenopathy. Ther e is no free fluid collection. Lung bases are clear. There is no acute osseous abnormality. There is a moderate size fat containing midline ventral hernia with the neck measuring 4.8 cm in acharya sverse diameter. IMPRESSION: 1. There is no acute process in the abdomen and pelvis. 2. Hepatic steatosis. 3. Moderate amount stool in the colon. 4. Moderate size fat containing midline ventral hernia. 5. 3 cm right ovarian cyst. HS:Y
[2024-11-13 11:14] VITALS: BP 158/91; PULSE 64; RESP 18; TEMP 98.3; O2SAT 99
[2024-11-13] MEDS: SODIUM CHLORIDE 0.9% 1,000 ML IV ONE (11:18)
[2024-11-13] MEDS: ONDANSETRON HCL 4 MG/2 ML VIAL IV ONE (11:18)
[2024-11-13] MEDS: KETOROLAC TROMETH 30 MG/ML 1ML VIAL IV ONE (11:18)
[2024-11-13] MEDS: PANTOPRAZOLE 40 MG/10 ML VIAL INJ IV ONE (11:18)
--- NOTE | 2024-11-13 11:23 | ED.PDOC ---
Departure 1 Departure Time of Disposition: 10:52 (Patient presented with abdominal pain that was concerning for possible appendicits, gastritis, cholecystitis, colitis, gastroenteritis, or orther possible surgical emergency. Data: 1. I ordered and reviewed the result of at least 3 labs including a CBC, BMP, and Urinalysis. 2. I independently interpreted the following tests: CT Abdoment and Pelvis is concerning for constipation, abdominal wall hernia .Risk:This patient has a high risk of morbidity due to further diagnostic testing or treatment and may suffer from an acute abdominal process disorder. Fortunately workup reveals likely constipation and patient can be safely discharged to home with outpatient follow up.) Impression: Primary Impression: Constipation Qualified Codes: K59.00 - Constipation, unspecified Additional Impression: Abdominal wall hernia Disposition: HOME / SELF CARE Condition: Stable Referrals: RICHMOND LOPES MD Additional Instructions: Fortunately your CT scan today was benign other than your hernia, an ovarian c yst, and a large volume of stool. It is important to stay well rested and well hydrated. You should eat a high-fiber diet. You can take [id number] MiraLax daily. This will help you have bowel movements. For pain you can take the followinam: Ibuprofen 400mg with food Noon: Acetaminophen 1000mg 4pm: Ibuprofen 400mg with food 8pm: Acetaminophen 1000mg You were referred to general surgery for repair of your hernia. Please call for an appointment. You should follow up with your regular doctor within one week to ensure you are doing better. If your symptoms worsen or you have any other concerns then please return to the ER. Discharged With: Self LORETTA HIDALGO MD Nov 13, 2024 11:23
[2024-11-13] MEDS ORDERED: ACET500T58 PO (18:23)
[2024-11-13] MEDS ORDERED: ZOFR4T PO (18:23)
[2024-11-13] MEDS ORDERED: DICY10CA PO (18:23)
== END 2024-11-13 11:31 | disposition home or self-care (01) ==
LOC: ER 08:24
DX: K59.00 Constipation, unspecified (principal); K46.9 Unspecified abdominal hernia without obstruction or gangrene; I11.0 Hypertensive heart disease with heart failure; I50.9 Heart failure, unspecified; E11.9 Type 2 diabetes mellitus without complications; Z90.49 Acquired absence of other specified parts of digestive tract; Z98.51 Tubal ligation status; Z79.84 Long term (current) use of oral hypoglycemic drugs; Z79.52 Long term (current) use of systemic steroids; Z79.82 Long term (current) use of aspirin; Z79.899 Other long term (current) drug therapy; Z88.1 Allergy status to other antibiotic agents
CPT/HCPCS: 36415; 74177; 80048; 81001; 85025; 96374; 96375; 99285; J1885; J2405; J2470; Q9967

== ENCOUNTER 2024-11-13 17:17 | Emergency (ER) | payer MEDICAID ==
[~2024-11-13] VITALS: Ht 170.2 cm; Wt 142.1 kg
--- NOTE | 2024-11-13 17:29 | ED.PDOC ---
GI ASSESSMENT HPI Comments 44 year old female presents to the ED with chief complaint of abdominal pain. Patient reports that she had been seen in the ED earlier today for abdominal pain and nausea, being told her CT only showed her umbilical hernia and a large amount of stool. Patient relays that she went home and started to experience worsening abdominal pain with associated nausea, vomiting, and diarrhea. Patient denies any fever, chills, dysuria, hematuria, hematemesis, or melena. Time Seen by MD: 17:25 Primary Care Provider: TY Reviewed Notes: Nurses Notes, Medications, Allergies Allergies: Coded Allergies: Levofloxacin (Verified Allergy, Unknown, 10/16/23) Home Meds Active Scripts Acetaminophen (Acetaminophen) 500 Mg Tab, 500 MG PO Q4HPRN, #30 TAB 0 Refills Prov:ANA GREWAL 10/08/24 Prednisone (Prednisone) 10 Mg Tab, 10 MG PO BID for 5 Days, #10 TAB 0 Refills Prov:ANA GREWAL 10/08/24 Amoxicillin & Pot Clavulanate (Amoxicillin/Potassium Cla) 875 Mg Tab, 1 TAB PO BID for 5 Days, #10 TAB 0 Refills Prov:ANA GREWAL 10/08/24 Azithromycin (Azithromycin) 250 Mg Tab, 250 MG PO DAILY MDD 500 for 5 Days, #6 TAB 0 Refills 2 TABLETS ORALLY ON DAY ONE, THEN 1 TABLET ORALLY DAILY FOR 4 DAYS Prov:ANA GREWAL 10/08/24 Losartan Potassium (Losartan Potassium) 50 Mg Tab, 1 TAB PO DAILY for 30 Days, #30 TAB 3 Refills Prov:VARGAS MAR MD 03/17/24 Furosemide (Lasix) 20 Mg Tb, 1 TAB PO QAM for 30 Days, #30 TAB 3 Refills Prov:VARGAS MAR MD 03/17/24 Metoprolol Succinate (Toprol Xl) 25 Mg Tab, 25 MG PO DAILY for 30 Days, #30 TAB 3 Refills Prov:VARGAS MAR MD 03/17/24 Atorvastatin Calcium (ATORVASTATIN CALCIUM) 20 Mg Tab, 20 MG PO HS for 30 Days, #30 TAB 3 Refills Prov:VARGAS MAR MD 03/17/24 Aspirin (Aspirin Low Dose) 81 Mg Tab, 81 MG PO DAILY for 30 Days, #30 TAB 3 Refills Prov:VARGAS MAR MD 03/17/24 Empagliflozin (Jardiance) 10 Mg Tab, 10 MG PO DAILY for 30 Days, #30 TAB 3 Refills Prov:VARGAS MAR MD 03/17/24 Reported Medications Gabapentin (Gabapentin) 100 Mg Cap, 100 MG PO BID, MG 03/13/24 Ferrous Gluconate (IRON) 27 Mg Tab, 27 MG PO, TAB 03/13/24 Ibuprofen (Ibuprofen) 600 Mg Tab, 600 MG PO, MG 0 Refills 03/13/24 Semaglutide (Ozempic) 2 Mg/3 Ml Inj, 2 MG SC, INJ 03/13/24 Information Source: Patient Mode of Arrival: Ambulatory Timing: Hours Duration: Since onset Prehospital treatment: None Quality: Sharp Vomitus: Watery Stool: Watery Severity: Moderate Recent: None Recent Hx of: None Pain Location: LLQ Modifying Factors: Nothing Associated sign and symptoms: Nausea, Vomiting, Diarrhea, Abdominal Pain Past Medical History PAST MEDICAL HISTORY: Anemia, CHF, DM, HTN Surgical History: Cholecystectomy, Tubal Ligation MANUFACTURING BAKER History: No Pertinent MANUFACTURING BAKER History Family History Family History: Reviewed,noncontributory to illness, Unknown Social History Smoker: Non-Smoker Alcohol: Denies ETOH Use Drugs: Denies Drug Use Lives In: Home Constitutional: denies: chills, diaphoresis, fatigue, fever, malaise, sweats, weakness, others EENTM: denies: blurred vision, double vision, ear bleeding, ear discharge, ear drainage, ear pain, ear ringing, eye pain, eye redness, hearing loss, mouth pain, mouth swelling, nasal discharge, nose bleeding, nose congestion, nose pain, photophobia, tearing, throat pain, throat swelling, voice changes, others Respiratory: denies: cough, hemoptysis, orthopnea, SOB at rest, shortness of breath, SOB with excertion, stridor, wheezing, others Cardiovascular: denies: chest pain, dizzy spells, diaphoresis, Dyspnea on exertion, edema, irregular heart beat, left arm pain, lightheadedness, palpitations, PND, syncope, others Gastrointestinal: reports: abdominal pain, diarrhea, nausea, vomiting; denies: abdomen distended, blood streaked bowels, constipated, dysphagia, difficulty swallowing, hematemesis, melena, poor appetite, poor fluid intake, rectal bleeding, rectal pain, others Genitourinary: denies: abnormal vagina bleeding, burning, dyspareunia, dysuria, flank pain, frequency, hematuria, incontinence, pain, , vagina discharge, urgency, others Neurological: denies: dizziness, fainting, headache, left sided numbness, left sided weakness, numbness, paresthesia, pre-existing deficit, right sided numbness, right sided weakness, seizure, speech problems, tingling, tremors, weakness, others Musculoskeletal: denies: back pain, gout, joint pain, joint swelling, muscle pain, muscle stiffness, neck pain, others Integumetry: denies: bruises, change in color, change in hair/nails, dryness, laceration, lesions, lumps, rash, wounds, others Allergic/Immunocompromised: denies: Difficulty Healing, Frequent Infections, Hives, Itching, others Hematologic/Lymphatic: denies: anemia, blood clots, easy bleeding, easy bruisin g, swollen glands, others Endocrine: denies: excessive hunger, excessive sweating, excessive thirst, excessive urination, flushing, intolerance to cold, intolerance to heat, unexplained weight gain, unexplained weight loss, others Psychiatric: denies: anxiety, bipolar disorder, depression, hopeless, panic disorder, schizophrenia, sleepless, suicidal, others All Other Systems: Reviewed and Negative Physical Exam General Appearance: Moderate Distress (Due to abdominal pain concerns), Obese HEENT: Normal ENT Inspection, Pharynx Normal, TMs Normal Neck: Full Range of Motion, Non-Tender, Normal, Normal Inspection Respiratory: Chest Non-Tender, Lungs Clear, No Accessory Muscle Use, No Respiratory Distress, Normal Breath Sounds Cardiovascular: No Edema, No JVD, No Murmur, No Gallop, Normal Peripheral Pulses, Regular Rate/Rhythm Breast Exam: Deferred Gastrointestinal: Other (Diffuse periumbilical tenderness to palpation throughout extending up towards the left upper quadrant. No signs of trauma. Difficult to assess due to body habitus.) Genitalia: Deferred Pelvic: Deferred Rectal: Deferred Extremities: No calf tenderness, Normal capillary refill, Normal inspection, Normal range of motion, Non-tender, No pedal edema Neurologic: Alert, home care physical therapist II-XII nml as Tested, No Motor Deficits, Normal Affect, Normal Mood, No Sensory Deficits Cerebellar Function: Normal Reflexes: Normal Skin: Dry, Normal Color, Warm Lymphatic: No Adenopathy Was a procedure done? Was a procedure done?: No GI differential Dx Differential Diagnosis: Other (Abdominal pain, constipation, umbilical hernia) X-Ray, Labs, Meds, VS Vital Signs Date Time Temp Pulse Resp B/P (MAP) Pulse Ox O2 Delivery O2 Flow Rate FiO2 11/13/24 18:18 Room Air* 0 21 11/13/24 17:27 98.2 72 18 143/82 (102) 98 98.2 Current Medications Medications (Trade) Dose Ordered Sig/Braydon Route Start Time Stop Time Status Last Admin Ketorolac Tromethamine (Toradol Injection) 30 mg ONCE ONCE IM 11/13/24 17:30 11/13/24 17:31 DC 11/13/24 18:14 Dicyclomine HCl (Bentyl Injection) 20 mg ONCE ONCE IM 11/13/24 17:30 11/13/24 17:31 DC 11/13/24 18:14 Ondansetron HCl (Zofran Po) 4 mg ONCE ONCE PO 11/13/24 17:30 11/13/24 17:31 DC 11/13/24 18:13 X-Ray, Labs, Meds, VS Comment Patient received a significant workup this morning in evaluating the cause of the abdominal pain. Patient will be sent home with additional medication to address her abdominal pain concerns. If the symptoms continue, patient will need to follow up with primary care provider. Time of 1ST Reevaluation: 18:21 Reevaluation 1ST: Improved Consultation: PCP, GI Patient Education/Counseling: Diagnosis, Treatment Family Education/Counseling: Diagnosis, Treatment, No Family Present Departure 1 Departure Time of Disposition: 18:21 Impression: Primary Impression: Abdominal pain Disposition: 01 HOME / SELF CARE / HOMELESS Condition: Stable Additional Instructions: Advised patient utilize medication as needed for symptomatic relief as well as good hydration and healthy nutrition throughout illness event. If the symptoms continue, patient will need to follow up with the primary care provider for GI referral and evaluation. e-Prescriptions Ondansetron Odt 4MG Tab (ZOFRAN PO) 4 Mg Tb 4 MG PO Q6HP PRN, #15 TAB ODT TAB-DISSOLVE IN MOUTH, THEN SWALLOW Prov: INES KIRBY PAC 11/13/24 Dicyclomine Hcl (BENTYL CAPSULE) 10 Mg Cp 1 CAP PO Q6HPRN, #20 CAP 0 Refills Prov: INES KIRBY PAC 11/13/24 Acetaminophen (Acetaminophen) 500 Mg Tab 500 MG PO Q4HP PRN, #30 TAB Prov: INES KIRBY PAC 11/13/24 Discharged With: Self, Friend Critical Care Note Critical Care Time?: No Stability Stability form required: No Heart Score Heart Score: Heart Score Response (Comments) Value History N/A 0 EKG N/A 0 Age N/A 0 Risk Factors N/A 0 Troponin N/A 0 Total 0 I personally scribed for INES KIRBY PAC ([email or web address]) on 11/13/24 at 17:29. Electronically submitted by Perry Langston ([email or web address]). INES KIRBY PAC Nov 13, 2024 17:29
[2024-11-13] MEDS: ONDANSETRON ODT 4 MG TAB PO ONE (18:13)
[2024-11-13] MEDS: KETOROLAC TROMETH 60MG/2ML VIAL IM ONE (18:14)
[2024-11-13] MEDS: DICYCLOMINE HCL (10MG/ML) 2 ML AMPULE IM ONE (18:14)
[2024-11-13] MEDS ORDERED: ZOFR4T PO (18:23)
[2024-11-13] MEDS ORDERED: DICY10CA PO (18:23)
[2024-11-13] MEDS ORDERED: ACET500T58 PO (18:23)
[2024-11-13 19:30] VITALS: BP 135/59; PULSE 58; RESP 17; TEMP 98.3; O2SAT 95
== END 2024-11-13 19:31 | disposition home or self-care (01) ==
LOC: ER 17:26
DX: R10.32 Left lower quadrant pain (principal); I11.0 Hypertensive heart disease with heart failure; I50.9 Heart failure, unspecified; E11.9 Type 2 diabetes mellitus without complications; D64.9 Anemia, unspecified; K42.9 Umbilical hernia without obstruction or gangrene; Z79.82 Long term (current) use of aspirin; Z79.899 Other long term (current) drug therapy; Z90.49 Acquired absence of other specified parts of digestive tract; Z98.51 Tubal ligation status; Z88.1 Allergy status to other antibiotic agents
CPT/HCPCS: 96372; 99284; J0500; J1885; Q0162

== ENCOUNTER 2025-03-23 09:07 | Inpatient (IN) | payer MEDICAID ==
[~2025-03-23] VITALS: Ht 170.2 cm; Wt 142.6 kg
[~2025-03-23 09:07] MED LIST changes: +DICY10CA PO; +ZOFR4T PO
--- NOTE | 2025-03-23 10:17 | ED.PDOC ---
History of Present Illness(SKN HPI Comments 44-year-old female that presents to the ED for chief complaint of wound care. Patient states she has had an umbilical hernia which she has had for the past two months. Patient states that she came to [facility] lasted exacerbated one week prior due to exacerbation of pain. Patient states that she was prescribed Keflex. And states he finished her a one-week course and is continuing to have pain so she came to the ED for further evaluation. Patient in the ED rates to pain 10/10 constant with no exacerbating or pain with movement and no relieving factors. Patient otherwise denies nausea vomiting fever chills are associated symptoms. Patient otherwise denies any other symptoms at this time. Chief Complaint: Wound Check Time Seen by MD: 10:00 Primary Care Provider: TY History of Present Illness: Medications, Allergies Allergies: Coded Allergies: Levofloxacin (Verified Allergy, Unknown, 10/16/23) Home Meds Active Scripts Cephalexin (KEFLEX CAPSULE) 250 Mg Cp, 250 MG PO Q6HR for 10 Days, #40 CAP 0 Refills Prov:KALYN GALVEZ 03/26/25 Nystatin (Mycostatin) 1 Applic Ap, 1 APPLIC TOP TID for 30 Days, #30 APPLIC Prov:KALYN GALVEZ 03/26/25 Ergocalciferol (VITAMIN D 43052 UNIT) 50,000 [place], [address] UNIT PO Q7D for 30 Days, #6 CAP Prov:KALYN GALVEZ RESIDENT 03/26/25 Losartan Potassium (Losartan Potassium) 50 Mg Tab, 1 TAB PO DAILY for 30 Days, #30 TAB 3 Refills Prov:VARGAS MAR MD 03/17/24 Furosemide (Lasix) 20 Mg Tb, 1 TAB PO QAM for 30 Days, #30 TAB 3 Refills Prov:VARGAS MAR MD 03/17/24 Metoprolol Succinate (Toprol Xl) 25 Mg Tab, 25 MG PO DAILY for 30 Days, #30 TAB 3 Refills Prov:VARGAS MAR MD 03/17/24 Aspirin (Aspirin Low Dose) 81 Mg Tab, 81 MG PO DAILY for 30 Days, #30 TAB 3 Refills Prov:VARGAS MAR MD 03/17/24 Reported Medications Losartan Potassium (Losartan Potassium) 25 Mg Tab, 1 TAB PO DAILY 03/23/25 Metformin Hydrochloride (Metformin Hcl) 500 Mg Tab, 1 TAB PO DAILY 03/23/25 Ferrous Sulfate (Ferrous Sulfate) 325 Mg Tab, 1 TAB PO BID 03/23/25 Discontinued Reported Medications Ferrous Gluconate (IRON) 27 Mg Tab, 27 MG PO, TAB 03/13/24 Discontinued Scripts Acetaminophen (Acetaminophen) 500 Mg Tab, 500 MG PO Q4HPRN, #30 TAB 0 Refills Prov:ANA GREWAL 10/08/24 Amoxicillin & Pot Clavulanate (Amoxicillin/Potassium Cla) 875 Mg Tab, 1 TAB PO BID for 5 Days, #10 TAB 0 Refills Prov:MARJORIE GREWALJAM PUGH 10/08/24 Azithromycin (Azithromycin) 250 Mg Tab, 250 MG PO DAILY MDD 500 for 5 Days, #6 TAB 0 Refills 2 TABLETS ORALLY ON DAY ONE, THEN 1 TABLET ORALLY DAILY FOR 4 DAYS Prov:URIANA PA 10/08/24 Atorvastatin Calcium (ATORVASTATIN CALCIUM) 20 Mg Tab, 20 MG PO HS for 30 Days, #30 TAB 3 Refills Prov:VARGAS MAR MD 03/17/24 Information Source: Patient Mode of Arrival: Ambulatory Past Medical History PAST MEDICAL HISTORY: Anemia, CHF, DM, HTN Surgical History: Cholecystectomy, Tubal Ligation SENIOR ADMINISTRATIVE SUPPORT History: No Pertinent SENIOR ADMINISTRATIVE SUPPORT History Family History Family History: Reviewed,noncontributory to illness, Unknown Social History Smoker: Non-Smoker Alcohol: Denies ETOH Use Drugs: Denies Drug Use Lives In: Home All Other Systems: Reviewed and Negative (See HPI) Physical Exam General Appearance: No Apparent Distress, Normal HEENT: Normal ENT Inspection, Pharynx Normal, TMs Normal Neck: Full Range of Motion, Non-Tender, Normal, Normal Inspection Respiratory: Chest Non-Tender, Lungs Clear, No Accessory Muscle Use, No Respiratory Distress, Normal Breath Sounds Cardiovascular: No Edema, No JVD, No Murmur, No Gallop, Normal Peripheral Pulses, Regular Rate/Rhythm Breast Exam: Deferred Gastrointestinal: No Organomegaly, Non Tender, No Pulsatile Mass, Normal Bowel Sounds, Soft Genitalia: Deferred Pelvic: Deferred Rectal: Deferred Extremities: No calf tenderness, Normal capillary refill, Normal inspection, Normal range of motion, Non-tender, No pedal edema Musculoskeletal : Apperance: Normal Neurologic: Alert, suture winder hand II-XII nml as Tested, No Motor Deficits, Normal Affect, Normal Mood, No Sensory Deficits Cerebellar Function: Normal Reflexes: Normal Skin: Other (Noted swelling redness noted by umbilical hernia) Lymphatic: No Adenopathy Was a procedure done? Was a procedure done?: No Differential Diagnosis (INTG) Abscess: Abscess, Bacteremia, Cellulitis X-Ray, Labs, Meds, VS Vital Signs Date Time Temp Pulse Resp B/P (MAP) Pulse Ox O2 Delivery O2 Flow Rate FiO2 03/23/25 13:35 62 18 98 Room Air* 0 21 03/23/25 13:35 98.0 62 18 147/78 (101) 98 98.0 03/23/25 09:10 98.2 77 19 150/99 98 98.2 Lab Test 03/23/25 10:21 03/23/25 10:16 Range/Units White Blood Count 7.5 4.4-10.8 10^3/uL Red Blood Count 4.83 4.0-5.20 10^6/uL Hemoglobin 9.9 L 12.2-16.2 g/dL Hematocrit 31.8 L 36.0-46.0 % Mean Corpuscular Volume 65.9 L 80.0-100.0 fL Mean Corpuscular Hemoglobin 20.4 L 28.0-32.0 pg Mean Corpuscular Hemoglobin Concent 31.0 L 32.0-36.0 g/dL Red Cell Distribution Width 18.7 H 11.8-14.3 % Platelet Count 356 140-450 10^3/uL Mean Platelet Volume 8.0 6.9-10.8 fL Neutrophils (%) (Auto) 71.7 37.0-80.0 % Lymphocytes (%) (Auto) 20.2 10.0-50.0 % Monocytes (%) (Auto) 4.7 0.0-12.0 % Eosinophils (%) (Auto) 3.1 0.0-7.0 % Basophils (%) (Auto) 0.3 0.0-2.0 % Neutrophils # (Auto) 5.4 1.6-8.6 10 ^3/uL Lymphocytes # (Auto) 1.5 0.4-5.4 10 ^3/uL Monocytes # (Auto) 0.4 0-1.3 10 ^3/uL Eosinophils # (Auto) 0.2 0-0.8 10 ^3/uL Basophils # (Auto) 0 0-0.2 10 ^3/uL Nucleated Red Blood Cells 0.0 % Platelet Estimate Adequate Large Platelets Few Hypochromasia (manual) Marked Anisocytosis (manual) Slight Microcytosis Marked Erythrocyte Sedimentation Rate 21 H 0-20 mm/hr Sodium Level 139 136-145 mmol/L Potassium Level 3.7 3.5-5.1 mmol/L Chloride Level 104 98-107 mmol/L Carbon Dioxide Level 28 20-31 mmol/L Anion Gap 7 5-15 Blood Urea Nitrogen 10 9-23 mg/dL Creatinine 0.75 0.550-1.02 mg/dL Glomerular Filtration Rate Calc 100 >90 mL/min BUN/Creatinine Ratio 13.3 10.0-20.0 Serum Glucose 98 74-106 mg/dL Lactic Acid Level 0.7 0.4-2.0 mmol/L Calcium Level 9.0 8.7-10.4 mg/dL Total Bilirubin 0.4 0.2-1.0 mg/dL Aspartate Amino Transferase (AST) 15 13-40 U/L Alanine Aminotransferase (ALT) 16 7-40 U/L Alkaline Phosphatase 62 46-116 U/L C-Reactive Protein High Sensitivity 1.52 H <1.0 mg/dL Total Protein 7.7 5.7-8.2 g/dL Albumin 4.1 3.2-4.8 g/dL Urine Color Light-yellow Yellow Urine Clarity Clear Clear Urine pH 5.0 5.0-9.0 Urine Specific [place] 1.015 1.001-1.035 Urine Protein Negative Negative Urine Ketones Negative Negative Urine Blood 1+ H Negative /uL Urine Nitrite Negative Negative Urine Bilirubin Negative Negative Urine Urobilinogen Normal Negative mg/dL Urine Leukocyte Esterase Negative Negative /uL Urine RBC 1 0 - 4 /hpf Urine Microscopic WBC < 1 0-5 /HPF Urine Squamous Epithelial Cells Few <5 /hpf Urine Bacteria None seen None Seen /hpf Urine Glucose Normal Normal mg/dL Urine Opiates Screen Neg NEGATIVE Urine Fentanyl Screen Neg NEGATIVE Urine Barbiturates Screen Neg NEGATIVE Urine Phencyclidine Screen Neg NEGATIVE Urine Amphetamines Screen Neg NEGATIVE Urine Benzodiazepines Screen Neg NEGATIVE Urine Cocaine Screen Neg NEGATIVE Urine Cannabinoids Screen Neg NEGATIVE Microbiology Date/Time Source Procedure Growth Status 03/23/25 10:21 Blood Blood Culture - Final NO GROWTH AFTER 5 DAYS OF INCUBATION. Complete 03/23/25 10:11 Blood Blood Culture - Final NO GROWTH AFTER 5 DAYS OF INCUBATION. Complete PATIENT: TATE HOLLAND JACCT: [id number]: [id number] : 1980 LOC: ER ROOM / BED: / AGE / SEX: 44 / F ADM STATUS: REG ER SERVICE [id number] ORDERING PHYSICIAN: SAUD SERVIN NP PROCEDURE(s): ABPLIV - CT AB PEL WITH IV CON ONLY REASON: Draining umbilical hernia ORDER NUMBER(s): [id number], ACCESSION NUMBER(s): [id number] Exam: CT CT AB PEL WITH IV CON ONLY History: Draining umbilical hernia. Comparison Study: CT CT AB PEL WITH IV CON ONLY on DOS: 11/13/24 Contrast: Type of contrast: Contrast injected: Contrast wasted: 0 TECHNIQUE: CT of the abdomen pelvis with intravenous contrast. Coronal sagittal reformatted images were submitted. Radiation Dose Information: CT Dose: CTDI volume is 23.75 mGy. Dose-length product is 3.92 mGy*cm FINDINGS: Lung Bases: No acute or significant lung base finding. Normal heart size. No pleural or pericardial effusion. Liver: The liver is normal in size. No focal lesions. Normal hepatic vascular enhancement. Diffusely hypoattenuating liver parenchyma consistent with hepatic steatosis. Gallbladder and Biliary Tree: Cholecystectomy. No biliary ductal dilatation. Spleen: Unremarkable Pancreas: The pancreas is normal in appearance without focal lesions or abnormal enhancement. Adrenal Glands: Unremarkable Kidneys: Kidneys demonstrate normal symmetric enhancement without focal lesions, calculi or hydronephrosis. Bladder: Unremarkable. Bowel: The stomach is grossly normal in appearance. Small bowel and colon are normal in caliber and distribution. The appendix is visualized and is normal. Intraperitoneal cavity. Lymphadenopathy: No mesenteric, retroperitoneal or periportal lymphadenopathy. Abdominal Wall and Mesentery: Fat containing umbilical hernia. Fascial defect measures 5.4 cm. There is fat stranding and thickening of the skin along the dependent portion of the umbilical hernia. Vasculature: The visualized abdominal aorta is normal in size and caliber. Abdominal and pelvic vessels demonstrate normal enhancement. Pelvic Organs: Unremarkable Musculoskeletal: No aggressive focal bony lesions, acute fractures or dislocation. Soft tissues: Unremarkable. IMPRESSION: 1. Fat containing umbilical hernia. Fat stranding and skin thickening along the dependent portion of the hernia consistent with cellulitis. 2. Hepatic steatosis. 3. Cholecystectomy. All CT scans at this medical facility are performed using dose modulation techniques as appropriate to a performed exam including the following: Automated exposure control was utilized; adjustment of the MA and/or KV according to patient size; and use of iterative reconstruction technique. ATED BY: ARTIE VALDES MD DICTATED DATE/TIME: 03/23/25 1148 SIGNED BY: ARTIE VALDES MD SIGNED DATE/TIME: 03/23/25 1148 CC: X-Ray, Labs, Meds, VS Comment 44-year-old female that presents to the ED for chief complaint of wound care. Patient arrives alert and oriented, ABC's intact, afebrile, vital signs stable, saturating well in room air Labs and CT were ordered. Diagnostic imaging ordered by me and results interpreted by radiology : IMPRESSION: 1. Fat containing umbilical hernia. Fat stranding and skin thickening along the dependent portion of the hernia consistent with cellulitis. 2. Hepatic steatosis. 3. Cholecystectomy. Patient was given: Rocephin 2 grams IV. Tolerated medications with no adverse reaction. Patients work up was remarkable for Fat containing umbilical hernia. Fat stranding and skin thickening along the dependent portion of the hernia cons istent with cellulitis. The patient's workup reveals that the patient needs further evaluation and/or treatment for the above medical conditions. Patient verbalized understanding of the above and is awaiting further evaluation by the admitting service. Time of 1ST Reevaluation: 12:15 Reevaluation 1ST: Unchanged Patient Education/Counseling: Diagnosis, Treatment Family Education/Counseling: No Family Present SEPSIS Sepsis Screen Date sepsis recognized/suspect: Mar 23, 2025 Time Sepsis recognized/suspect: 909 Recent Procedure: No On Antibiotic Therapy: No Respiratory Rate >20: No Heart Rate >90: No Temp<36 C (96.8 F) or >38.3 C: No SBP <90 or MAP <65 mmHG: No New Acute Mental Status Change: No Is the patient on CPAP, BIPAP,: No Physician Orders Heplock Iv (03/23/25 ) Ct Ab Pel With Iv Con Only (03/23/25 09:53) Vital Signs Date Time Temp Pulse Resp B/P (MAP) Pulse Ox O2 Delivery O2 Flow Rate FiO2 03/23/25 13:35 62 18 98 Room Air* 0 21 03/23/25 13:35 98.0 62 18 147/78 (101) 98 98.0 03/23/25 09:10 98.2 77 19 150/99 98 98.2 Laboratory Tests Test 03/23/25 10:21 Lactic Acid Level 0.7 mmol/L (0.4-2.0) White Blood Count 7.5 10^3/uL (4.4-10.8) Departure 1 Departure Time of Disposition: 12:17 Impression: Primary Impression: Umbilical hernia Qualified Codes: K42.9 - Umbilical hernia without obstruction or gangrene Additional Impression: Cellulitis Qualified Codes: L03.90 - Cellulitis, unspecified Disposition: ADMITTED INPATIENT Condition: Serious e-Prescriptions Cephalexin (KEFLEX CAPSULE) 250 Mg Cp 250 MG PO Q6HR for 10 Days, #40 CAP 0 Refills Prov: LEONORKALYN RESIDENT 03/26/25 Nystatin (Mycostatin) 1 Applic Ap 1 APPLIC TOP TID for 30 Days, #30 APPLIC [facility] 03/26/25 Ergocalciferol (VITAMIN D 32556 UNIT) 50,000 [place] [address] UNIT PO Q7D for 30 Days, #6 CAP [facility] 03/26/25 Critical Care Note Critical Care Time?: No Stability Stability form required: No Heart Score Heart Score: Heart Score Response (Comments) Value History N/A 0 EKG N/A 0 Age N/A 0 Risk Factors N/A 0 Troponin N/A 0 Total 0 I personally scribed for SAUD SERVIN NP ([email or web address]) on 03/23/25 at 10:17. Electronically submitted by Debbie Feliz ([email or web address]). I personally scribed for SAUD SERVIN NP ([email or web address]) on 03/23/25 at 16:38. Electronically submitted by Debbie Feliz ([email or web address]). SAUD SERVIN NP Mar 23, 2025 10:17
[2025-03-23 10:42] LABS: Hematocrit 31.8 % (36.0-46.0); Hemoglobin 9.9 g/dL (12.2-16.2); Mean Corpuscular Hemoglobin 20.4 pg (28.0-32.0); Mean Corpuscular Volume 65.9 fL (80.0-100.0); Nucleated Red Blood Cells % 0.0 %
[2025-03-23 10:55] LABS: Alanine Aminotransferase 16 U/L (7-40); Albumin 4.1 g/dL (3.2-4.8); Alkaline Phosphatase 62 U/L (46-116); Anion Gap 7 (5-15); BUN/Creatinine Ratio 13.3 (10.0-20.0); Blood Urea Nitrogen 10 mg/dL (9-23); Calcium 9.0 mg/dL (8.7-10.4); Carbon Dioxide 28 mmol/L (20-31); Chloride 104 mmol/L (98-107); Glucose 98 mg/dL (74-106); Potassium 3.7 mmol/L (3.5-5.1); Sodium 139 mmol/L (136-145); Total Protein 7.7 g/dL (5.7-8.2)
[2025-03-23 10:56] LABS: Bilirubin, Total 0.4 mg/dL (0.2-1.0)
[2025-03-23 11:07] LABS: Urine Protein, UAD Negative (Negative)
[2025-03-23] MEDS: IOHEXOL 300 MG/ML 100ML BOTTLE IJ ONE (11:16)
[2025-03-23 11:30] LABS: Anisocytosis Slight
--- NOTE | 2025-03-23 11:50 | DVH ---
Exam: CT CT AB PEL WITH IV CON ONLY History: Draining umbilical hernia. Comparison Study: CT CT AB PEL WITH IV CON ONLY on DOS: 11/13/24 Contrast: Type of contrast: Contrast injected: Contrast wasted: 0 TECHNIQUE: CT of the abdomen pelvis with intravenous contrast. Coronal sagittal reformatted images w ere submitted. Radiation Dose Information: CT Dose: CTDI volume is 23.75 mGy. Dose-length product is 3.92 mGy*cm FINDINGS: Lung Bases: No acute or significant lung base finding. Normal heart size. No pleural or pericardial effusion. Liver: The liver is normal in size. No focal lesions. Normal hepatic vascular enhancement. Diffusely hypoattenuating liver parenchyma consistent with hepatic steatosis. Gallbladder and Biliary Tree: Cholecystectomy. No biliary ductal dilatation. Spleen: Unremarkable Pancreas: The pancreas is normal in appearance without focal lesions or abnormal enhancement. Adrenal Glands: Unremarkable Kidneys: Kidneys demonstrate normal symmetric enhancement without focal lesions, calculi or hydroneph rosis. Bladder: Unremarkable. Bowel: The stomach is grossly normal in appearance. Small bowel and colon are normal in caliber and d istribution. The appendix is visualized and is normal. Intraperitoneal cavity. Lymphadenopathy: No mesenteric, retroperitoneal or periportal lymphadenopathy. Abdominal Wall and Mesentery: Fat containing umbilical hernia. Fascial defect measures 5.4 cm. There is fat stranding and thickening of the skin along the dependent portion of the umbilical hernia. Vasculature: The visualized abdominal aorta is normal in size and caliber. Abdominal and pelvic vess els demonstrate normal enhancement. Pelvic Organs: Unremarkable Musculoskeletal: No aggressive focal bony lesions, acute fractures or dislocation. Soft tissues: Unremarkable. IMPRESSION: 1. Fat containing umbilical hernia. Fat stranding and skin thickening along the dependent portion of the hernia consistent with cellulitis. 2. Hepatic steatosis. 3. Cholecystectomy. All CT scans at this medical facility are performed using dose modulation techniques as appropriate t o a performed exam including the following: Automated exposure control was utilized; adjustment of th e MA and/or KV according to patient size; and use of iterative reconstruction technique.
[2025-03-23] MEDS: cefTRIAXone 2GM/50ML D5W 50 ML IV ONE (13:34)
[2025-03-23 13:35] VITALS: PULSE 62; RESP 18; O2SAT 98
[2025-03-23] MEDS ORDERED: HYDROcodone-ACET 5/325MG TAB PO PRN (14:00)
[2025-03-23] MEDS ORDERED: DOCUSATE SOD 100 MG CAP PO PRN (14:00)
[2025-03-23] MEDS ORDERED: ONDANSETRON HCL 4 MG/2 ML VIAL IV PRN (14:00)
[2025-03-23] MEDS ORDERED: METF-370 PO (14:13)
[2025-03-23] MEDS ORDERED: LOS25T PO (14:13)
[2025-03-23] MEDS ORDERED: ROSU5TAB24 PO (14:13)
[2025-03-23] MEDS ORDERED: FER325T PO (14:13)
--- NOTE | 2025-03-23 14:27 | DVHHP2 ---
History of Present Illness Reason for Visit: Wound check History of Present Illness Laura Braun is a 44-year-old female with past medical history of umbilical hernia, diabetes, and hypertension, who came to the hospital due to open wound to umbilical hernia. Patient states about 1 week ago she noticed that she had a wound on her abdomen, on her umbilical hernia. She went to a different hospital ans was prescribed PO antibiotics. Her wound has not improved and continues to drain, be red, and painful. This prompted her to come to this hospital today. Cardiovascular: HTN Endocrine: Diabetes Past Surgical History: Cholecystectomy, Other (Bowel resection), Tubal Ligation Review of Systems Constitutional: No: Fever, Chills, Sweats, Weakness, Malaise, Other ENT: No: Ear pain, Ear discharge, Nose pain, Nose discharge, Nose congestion, Mouth pain, Mouth swelling, Throat pain, Throat swelling, Other Respiratory: No: Cough, Dry, Shortness of breath, SOB with excertion, Wheezing, Hemoptysis, Pleuritic Pain, Sputum, Wheezing, Other Cardiovascular: No: Chest Pain, Palpitations, Orthopnea, Paroxysmal Noc. Dyspnea, Edema, Lt Headedness, Other Gastrointestinal: Abdominal Pain, Other (hernia); No: Nausea, Vomiting, Diarrhea, Constipation, Melena, Hematochezia Genitourinary: No Dysuria, No Frequency, No Incontinence, No Hematuria, No Retention, No Other Musculoskeletal: No: other, neck pain, shoulder pain, arm pain, back pain, hand pain, leg pain, foot pain Skin: Other (cellulitis of abdomen); No: Rash, Lesions, Jaundice, Bruising Neurological: No: Weakness, Numbness, Incoordination, Change in speech, Confusion, Seizures, Other Allergies: Coded Allergies: Levofloxacin (Verified Allergy, Unknown, 10/16/23) Medications Current Medications Medications Dose Ordered Sig/[facility] Route Start Time Stop Time Status Last Admin Dose Admin Sodium Chloride 1,000 ml @ 100 mls/hr Q10H IV 03/23/25 14:00 UNV Acetaminophen/ Hydrocodone Bitart 1 tab Q4HP PRN PO 03/23/25 14:00 UNV Ondansetron HCl 4 mg Q4HP PRN IV 03/23/25 14:00 UNV Docusate Sodium 100 mg BIDPRN PRN PO 03/23/25 14:00 UNV Acetaminophen 650 mg Q6HP PRN PO 03/23/25 14:00 UNV Losartan Potassium 50 mg DAILY PO 03/24/25 10:00 UNV Exam Vital Signs Vital Signs Date Time Temp Pulse Resp B/P (MAP) Pulse Ox O2 Delivery O2 Flow Rate FiO2 03/23/25 13:35 62 18 98 Room Air* 0 21 03/23/25 13:35 98.0 147/78 (101) 98.0 General Appearance: Alert, Oriented X3, Cooperative, moderate distress HEENT: Atraumatic, PERRLA Respiratory: Clear to auscultation, Normal air movement Cardiovascular: Regular rate, Normal S1, Normal S2 Abdominal: Normal bowel sounds, Other (Pain at site of hernia) Extremities: No clubbing, No cyanosis, No edema, Normal pulses Skin: No rashes, No breakdown, No significant lesion Neuro: Normal gait, Normal speech, Strength at 5/5 X4 ext Psych/Mental Status: Mental status NL, Mood NL Labs/Xrays Labs Test 03/23/25 10:21 03/23/25 10:16 Range/Units White Blood Count 7.5 4.4-10.8 10^3/uL Red Blood Count 4.83 4.0-5.20 10^6/uL Hemoglobin 9.9 L 12.2-16.2 g/dL Hematocrit 31.8 L 36.0-46.0 % Mean Corpuscular Volume 65.9 L 80.0-100.0 fL Mean Corpuscular Hemoglobin 20.4 L 28.0-32.0 pg Mean Corpuscular Hemoglobin Concent 31.0 L 32.0-36.0 g/dL Red Cell Distribution Width 18.7 H 11.8-14.3 % Platelet Count 356 140-450 10^3/uL Mean Platelet Volume 8.0 6.9-10.8 fL Neutrophils (%) (Auto) 71.7 37.0-80.0 % Lymphocytes (%) (Auto) 20.2 10.0-50.0 % Monocytes (%) (Auto) 4.7 0.0-12.0 % Eosinophils (%) (Auto) 3.1 0.0-7.0 % Basophils (%) (Auto) 0.3 0.0-2.0 % Neutrophils # (Auto) 5.4 1.6-8.6 10 ^3/uL Lymphocytes # (Auto) 1.5 0.4-5.4 10 ^3/uL Monocytes # (Auto) 0.4 0-1.3 10 ^3/uL Eosinophils # (Auto) 0.2 0-0.8 10 ^3/uL Basophils # (Auto) 0 0-0.2 10 ^3/uL Nucleated Red Blood Cells 0.0 % Platelet Estimate Adequate Large Platelets Few Hypochromasia (manual) Marked Anisocytosis (manual) Slight Microcytosis Marked Erythrocyte Sedimentation Rate 21 H 0-20 mm/hr Sodium Level 139 136-145 mmol/L Potassium Level 3.7 3.5-5.1 mmol/L Chloride Level 104 98-107 mmol/L Carbon Dioxide Level 28 20-31 mmol/L Anion Gap 7 5-15 Blood Urea Nitrogen 10 9-23 mg/dL Creatinine 0.75 0.550-1.02 mg/dL Glomerular Filtration Rate Calc 100 >90 mL/min BUN/Creatinine Ratio 13.3 10.0-20.0 Serum Glucose 98 74-106 mg/dL Lactic Acid Level 0.7 0.4-2.0 mmol/L Calcium Level 9.0 8.7-10.4 mg/dL Total Bilirubin 0.4 0.2-1.0 mg/dL Aspartate Amino Transferase (AST) 15 13-40 U/L Alanine Aminotransferase (ALT) 16 7-40 U/L Alkaline Phosphatase 62 46-116 U/L C-Reactive Protein High Sensitivity 1.52 H <1.0 mg/dL Total Protein 7.7 5.7-8.2 g/dL Albumin 4.1 3.2-4.8 g/dL Urine Color Light-yellow Yellow Urine Clarity Clear Clear Urine pH 5.0 5.0-9.0 Urine Specific [place] 1.015 1.001-1.035 Urine Protein Negative Negative Urine Ketones Negative Negative Urine Blood 1+ H Negative /uL Urine Nitrite Negative Negative Urine Bilirubin Negative Negative Urine Urobilinogen Normal Negative mg/dL Urine Leukocyte Esterase Negative Negative /uL Urine RBC 1 0 - 4 /hpf Urine Microscopic WBC < 1 0-5 /HPF Urine Squamous Epithelial Cells Few <5 /hpf Urine Bacteria None seen None Seen /hpf Urine Glucose Normal Normal mg/dL Exam: CT CT AB PEL WITH IV CON ONLY FINDINGS: Lung Bases: No acute or significant lung base finding. Normal heart size. No pleural or pericardial effusion. Liver: The liver is normal in size. No focal lesions. Normal hepatic vascular enhancement. Diffusely hypoattenuating liver parenchyma consistent with hepatic steatosis. Gallbladder and Biliary Tree: Cholecystectomy. No biliary ductal dilatation. Spleen: Unremarkable Pancreas: The pancreas is normal in appearance without focal lesions or abnormal enhancement. Adrenal Glands: Unremarkable Kidneys: Kidneys demonstrate normal symmetric enhancement without focal lesions, calculi or hydronephrosis. Bladder: Unremarkable. Bowel: The stomach is grossly normal in appearance. Small bowel and colon are normal in caliber and distribution. The appendix is visualized and is normal. Intraperitoneal cavity. Lymphadenopathy: No mesenteric, retroperitoneal or periportal lymphadenopathy. Abdominal Wall and Mesentery: Fat containing umbilical hernia. Fascial defect measures 5.4 cm. There is fat stranding and thickening of the skin along the dependent portion of the umbilical hernia. Vasculature: The visualized abdominal aorta is normal in size and caliber. Abdominal and pelvic vessels demonstrate normal enhancement. Pelvic Organs: Unremarkable Musculoskeletal: No aggressive focal bony lesions, acute fractures or dislocation. Soft tissues: Unremarkable. IMPRESSION: 1. Fat containing umbilical hernia. Fat stranding and skin thickening along the dependent portion of the hernia consistent with cellulitis. 2. Hepatic steatosis. 3. Cholecystectomy. SEPSIS Sepsis Screen Date sepsis recognized/suspect: Mar 23, 2025 Time Sepsis recognized/suspect: 909 Recent Procedure: No On Antibiotic Therapy: No Respiratory Rate >20: No Heart Rate >90: No Temp<36 C (96.8 F) or >38.3 C: No SBP <90 or MAP <65 mmHG: No New Acute Mental Status Change: No Is the patient on CPAP, BIPAP,: No Physician Orders Blood Culture (03/23/25 09:53) Heplock Iv (03/23/25 ) Ct Ab Pel With Iv Con Only (03/23/25 09:53) Admit (03/23/25 13:59) Code Status (03/23/25 13:59) Sodium Chloride 0.9% (03/23/25 14:00) Hydrocodone-Acet 5/325mg Tab ([place] 5/32 (03/23/25 14:00) Ondansetron Hcl (Zofran) (03/23/25 14:00) Docusate Sodium Capsule (Colace Capsule) (03/23/25 14:00) Complete Blood Count (03/24/25 04:00) Comprehensive Metabolic Panel (03/24/25 04:00) Npo (Nothing By Mouth) Diet (03/23/25 Dinner) Condition: Serious (03/23/25 13:59) Acetaminophen Tablet (Tylenol Tablet) (03/23/25 14:00) Losartan Tablet (Cozaar Tablet) (03/24/25 10:00) Aspirin Enteric Coated Tablet (Ecotrin E (03/24/25 10:00) Ferrous Sulfate Tablet (03/23/25 22:00) Losartan Tablet (Cozaar Tablet) (03/24/25 10:00) Metformin Hydrochloride (Glucophage) (03/24/25 10:00) (Nf) Rosuvastatin Calcium (03/23/25 22:00) Vital Signs Date Time Temp Pulse Resp B/P (MAP) Pulse Ox O2 Delivery O2 Flow Rate FiO2 03/23/25 13:35 62 18 98 Room Air* 0 21 03/23/25 13:35 98.0 62 18 147/78 (101) 98 98.0 03/23/25 09:10 98.2 77 19 150/99 98 98.2 Laboratory Tests Test 03/23/25 10:21 Lactic Acid Level 0.7 mmol/L (0.4-2.0) White Blood Count 7.5 10^3/uL (4.4-10.8) Medications Medications Dose Ordered Sig/[facility] Route Start Time Stop Time Status Last Admin Dose Admin Ceftriaxone Sodium/Dextrose 50 ml @ 50 mls/hr ONCE ONCE IV 03/23/25 12:30 03/23/25 13:29 DC 03/23/25 13:34 50 MLS/HR Assessment/Plan Assessment/Plan Assessment: Cellulitis, Umbilical hernia, Hypertension, Diabetes, Plan: Admit to Med-Surg, Surgical consult, Wound care consult, Wound culture, IV antibiotics, IV hydration, Accu checks Q AC&HS with sliding scale coverage, Home medications reconciled, PT/PTT, Chest X-ray, Plan discussed with: Patient My Orders Orders - REENA CHAN PODIATRIC MEDICINE DOCTOR Procedure Category Date Status Time Admit ADMIT 03/23/25 Transmitted 13:59 Code Status CODE 03/23/25 Transmitted 13:59 Sodium Chloride 0.9% PHA 03/23/25 Logged 14:00 Hydrocodone-Acet PHA 03/23/25 Logged 5/325mg Tab ([place] 14:00 Ondansetron Hcl PHA 03/23/25 Logged (Zofran) 14:00 Docusate Sodium PHA 03/23/25 Logged Capsule (Colace 14:00 Complete Blood Count LAB 03/24/25 Verified 04:00 Comprehensive LAB 03/24/25 Verified Metabolic Panel 04:00 Npo (Nothing By DIET 03/23/25 Transmitted Mouth) Diet Dinner Condition: Serious KYLAH 03/23/25 In Process 13:59 Acetaminophen Tablet PHA 03/23/25 Logged (Tylenol Tablet) 14:00 Losartan Tablet PHA 03/24/25 Logged (Cozaar Tablet) 10:00 Aspirin Enteric PHA 03/24/25 Verified Coated Tablet 10:00 Ferrous Sulfate Tablet PHA 03/23/25 Verified 22:00 Losartan Tablet PHA 03/24/25 Verified (Cozaar Tablet) 10:00 Metformin PHA 03/24/25 Verified Hydrochloride 10:00 (Nf) Rosuvastatin PHA 03/23/25 Verified Calcium 22:00 Date of Service: Mar 23, 2025 Billing Provider: REENA CHAN Common Visit Codes: [id number] INP/OBS CARE (MOD) REENA CHAN Mar 23, 2025 14:27
[2025-03-23] MEDS ORDERED: DEXTROSE (50%) 50ML SYRG IV PRN (14:30)
[2025-03-23] MEDS: SODIUM CHLORIDE 0.9% 1,000 ML IV SCH (16:33)
[2025-03-23] MEDS: CLINDAMYCIN 600MG IV 50 ML IV SCH (16:38)
[2025-03-23] MEDS: ACCU-CHEK COMFORT CURVE STRIP VI SCH (18:57)
[2025-03-23] MEDS: InsuLIN REG 1unit/0.01ml Soln (100units/ml) SC SCH (18:57)
[2025-03-23 19:30] LABS: INR 1.0 (0.9-1.15); Partial Thromboplastin Time 28.9 SEC (24.5-34.5); Prothrombin Time 10.6 sec (9.3-11.8)
--- NOTE | 2025-03-23 19:53 | DVH ---
CHEST RADIOGRAPH REASON FOR EXAM: Pre-Op COMPARISON: XY CHEST TWO VIEWS ROUTINE on DOS: 10/08/24, XY CHEST XRAY 1 VIEW on DOS: 03/14/24, XY CHEST PORTABLE on DOS: 03/13/24 TECHNIQUE: One view of the chest is provided FINDINGS: Pulmonary venous congestion.There is no significant pleural effusion. No acute bony abnorma lity is identified. IMPRESSION: No radiographic evidence of acute cardiopulmonary process.
[2025-03-23 20:42] VITALS: BP 115/76; PULSE 62; RESP 18; TEMP 97.6; O2SAT 96
[2025-03-23 20:52] VITALS: RESP 18; O2SAT 98
[2025-03-23] MEDS: ATORVASTATIN 20 MG TAB PO SCH (21:50)
[2025-03-23] MEDS: FERROUS SULFATE 325mg EC TAB PO SCH (21:50)
[2025-03-24 01:00] VITALS: BP 114/72; PULSE 61; RESP 18; TEMP 97.6; O2SAT 94
[2025-03-24 05:00] VITALS: BP 105/59; PULSE 60; RESP 19; TEMP 97.6; O2SAT 96
[2025-03-24 06:06] LABS: Hematocrit 29.7 % (36.0-46.0); Hemoglobin 9.4 g/dL (12.2-16.2); Mean Corpuscular Hemoglobin 20.9 pg (28.0-32.0); Mean Corpuscular Volume 66.3 fL (80.0-100.0); Nucleated Red Blood Cells % 0.1 %
[2025-03-24 06:28] LABS: Alanine Aminotransferase 13 U/L (7-40); Alkaline Phosphatase 55 U/L (46-116); Anion Gap 8 (5-15); BUN/Creatinine Ratio 15.7 (10.0-20.0); Blood Urea Nitrogen 13 mg/dL (9-23); Carbon Dioxide 28 mmol/L (20-31); Chloride 104 mmol/L (98-107); Potassium 3.5 mmol/L (3.5-5.1); Sodium 140 mmol/L (136-145); Total Protein 7.0 g/dL (5.7-8.2)
[2025-03-24 06:29] LABS: Albumin 3.7 g/dL (3.2-4.8)
[2025-03-24 06:30] LABS: Bilirubin, Total 0.5 mg/dL (0.2-1.0)
[2025-03-24 06:33] LABS: Calcium 8.6 mg/dL (8.7-10.4); Glucose 117 mg/dL (74-106)
[2025-03-24 09:00] VITALS: BP 112/51; PULSE 68; RESP 19; TEMP 97.7; O2SAT 93
[2025-03-24] MEDS ORDERED: LOSARTAN POTASSIUM 50 MG TAB PO SCH (10:00)
[2025-03-24] MEDS: LOSARTAN POTASSIUM 25 MG TAB PO SCH (10:14)
[2025-03-24] MEDS: ASPirin-EC 81 mg tab PO SCH (10:14)
--- NOTE | 2025-03-24 10:16 | DVHPNRES ---
Progress Note Date Seen: Mar 24, 2025 Resident Creating Document: ERICKA DU RESIDENT Medical Necessity Reason Pt with a Central, PICC or Fol: No Subjective Review of Systems Patient is a 44-year-old female with past medical history of umbilical hernia, diabetes, hypertension who came to the hospital due to a open wound on the lower side of her umbilical hernia, with draining pus dizziness. Patient also states that about 1 week ago she went to a different hospital where she was given Keflex for 1 week. She states that her wound has not improved and continues to drain pus, is painful. Past surgical history: Cholecystectomy, part of colon removed, tubal ligation Personal history: Patient denies any smoking, alcohol use, drug use 03/24/2025 Patient seen in the holding. Patient is alert x3, in mild distress, she complains of a open wound which has been draining pus on her umbilical hernia since 3 weeks cramping of her abdomen which comes and goes and increased with changing positions. She states that her umbilical hernia has been growing in size since 10 years after her normal delivery. CT scan shows Fat containing umbilical hernia. Fat stranding and skin thickening along the dependent portion of the hernia consistent with cellulitis. Hepatic steatosis, Cholecystectomy. Vitamin-D was given. Objective vital signs Vital Sign Date Time Temp Pulse Resp B/P (MAP) Pulse Ox O2 Delivery O2 Flow Rate FiO2 03/24/25 05:00 97.6 60 19 105/59 (74) 96 97.6 03/23/25 20:52 Room Air* 0 21 Total Intake and Output 03/23/25 03/23/25 03/24/25 15:00 23:00 07:00 Intake Total 50 ml 640 ml Balance 50 ml 640 ml medications Current Medications Medications Dose Ordered Sig/[facility] Route Start Time Stop Time Status Last Admin Dose Admin Sodium Chloride 1,000 ml @ 100 mls/hr Q10H IV 03/23/25 14:00 Acetaminophen/ Hydrocodone Bitart 1 tab Q4HP PRN PO 03/23/25 14:00 Ondansetron HCl 4 mg Q4HP PRN IV 03/23/25 14:00 Docusate Sodium 100 mg BIDPRN PRN PO 03/23/25 14:00 Acetaminophen 650 mg Q6HP PRN PO 03/23/25 14:00 Losartan Potassium 50 mg DAILY PO 03/24/25 10:00 UNV Aspirin 81 mg DAILY PO 03/24/25 10:00 Ferrous Sulfate 325 mg BID PO 03/23/25 22:00 03/23/25 21:50 325 MG Losartan Potassium 25 mg DAILY PO 03/24/25 10:00 Metformin HCl 500 mg DAILY PO 03/24/25 10:00 Atorvastatin Calcium 10 mg HS PO 03/23/25 22:00 03/23/25 21:50 10 MG Clindamycin Phosphate 50 ml @ 50 mls/hr Q8HR IV 03/23/25 14:50 03/24/25 05:52 50 MLS/HR Diagnostic Test (Pha) 1 strip Q6HR 03/23/25 18:00 03/24/25 05:52 1 STRIP Insulin Human Regular Q6HR SC 03/23/25 18:00 03/24/25 05:58 2 UNITS Dextrose 50 ml UD PRN IV 03/23/25 14:30 Examination General: Patient alert and oriented in person, place and time. Patient following commands. HEENT: Normocephalic, atraumatic, moist mucous membranes Respiratory/pulmonary: Clear lungs bilaterally, vesicular murmurs present in almost all lung haas, no associated crackles or wheezes. Cardiovascular: Normal heart sounds S1 and S2 with no associated murmurs Abdomen: Umbilical hernia which is reducible, has a open wound with draining pus. Obese abdomen Extremities: There is no peripheral edema present at the lower extremities. Peripheral Pulses: 3+ Radial (R). 3+ Radial (L). 3+ Dorsalis pedis (R). 3+ Dorsalis pedis(L) Skin: No rashes or pruritus, there is no sacral edema present at this time. Neurological: Intact cranial nerves with no focal neurologic deficits laboratory and microbiology Laboratory Tests 03/24/25 04:55 Test 03/24/25 04:55 Range/Units Serum Glucose 117 H 74-106 mg/dL Problem List/Assessment/Plan Problem List/Assessment/Plan # umbilical hernia with skin complications by cellulitis # ? Abdominal wall cellulitis likely from above - started on clindamycin - nystatin topical , IV fluconazole - elevated ESR and CRP likely due to above - CT ABD/ pelvis showed fat containing umbilical hernia with findings suggestive of cellulitis - wound consult placed and culture ordered # hepatic steatosis likely MASH - outpatient follow-up with GI # Mild microcytic hypochromic anemia likely due to iron deficiency - monitor labs - ferrous sulfate p.o. # uncontrolled hypertension - continue losartan - continue monitoring blood pressur # Obesity BMI 49.7-life style modifications, dietary changes # Type 2 diabetes Mottled ISS DVT PPX: Ambulating not indicated PUD PPX: Protonix 40 mg Diet: Cardiac diet Goals of care addressed with the patient for more than 27 minutes: Full code status Case discussed with Dr. Schaefer, patient and nurse Plan discussed with: Patient Date of Service: Mar 24, 2025 Billing Provider: ANGEL SCHAEFER MD Common Visit Codes: [id number] INP/OBS CARE(HIGH) ERICKA DU RESIDENT Mar 24, 2025 10:16 ANGEL SCHAEFER MD Mar 24, 2025 23:51
[2025-03-24 13:00] VITALS: BP 126/44; PULSE 80; RESP 17; TEMP 97.6; O2SAT 91
[2025-03-24] MEDS: NYSTATIN TOPICAL POWDER 15GM TOP SCH (14:00)
[2025-03-24] MEDS ORDERED: DEXTROSE (50%) 50ML SYRG IV PRN (14:30)
[2025-03-24] MEDS: ACCU-CHEK COMFORT CURVE STRIP VI SCH (16:44)
[2025-03-24] MEDS: InsuLIN REG 1unit/0.01ml Soln (100units/ml) SC SCH (16:44)
[2025-03-24 17:00] VITALS: BP 119/52; PULSE 64; RESP 19; TEMP 97.1; O2SAT 100
[2025-03-24 17:13] LABS: Amphetamine Screen, Urine Neg (NEGATIVE); Barbiturate Scree,Urine Neg (NEGATIVE); Benzodiazephine Screen, Urine Neg (NEGATIVE); Cannabinoid Screen, Urine Neg (NEGATIVE); Cocaine Screen, Urine Neg (NEGATIVE); Opiate Scree,Urine Neg (NEGATIVE); Phencyclidine Screen, Urine Neg (NEGATIVE)
[2025-03-24] MEDS: FLUCONAZOLE 200MG/100ML 100 ML IV ONE (17:17)
[2025-03-24 21:00] VITALS: BP 109/51; PULSE 64; RESP 16; TEMP 97.9; O2SAT 95
[2025-03-24] MEDS: ACETAMINOPHEN 325 MG TAB PO PRN (22:49)
[2025-03-24] MEDS: ERGOCALCIFEROL 50,000 UNIT(1.25MG) CAP PO SCH (23:22)
[2025-03-25] VITALS (7 sets, daily range): BP systolic 102–136; BP diastolic 61–90; PULSE 63–78; RESP 16–20; TEMP 97.3–98.1; O2SAT 92–99
[2025-03-25] MEDS: PANTOPRAZOLE 40 MG TAB PO SCH (06:10)
[2025-03-25] MEDS: FLUCONAZOLE 200MG/100ML 100 ML IV SCH (10:14)
[2025-03-25 10:27] LABS: Hematocrit 31.8 % (36.0-46.0); Hemoglobin 9.9 g/dL (12.2-16.2); Nucleated Red Blood Cells % 0.1 %
[2025-03-25 10:31] LABS: Mean Corpuscular Hemoglobin 20.8 pg (28.0-32.0); Mean Corpuscular Volume 66.5 fL (80.0-100.0)
[2025-03-25 10:34] LABS: Alanine Aminotransferase 15 U/L (7-40); Albumin 3.7 g/dL (3.2-4.8); Alkaline Phosphatase 55 U/L (46-116); Anion Gap 7 (5-15); BUN/Creatinine Ratio 12.3 (10.0-20.0); Carbon Dioxide 28 mmol/L (20-31); Chloride 106 mmol/L (98-107); Sodium 141 mmol/L (136-145); Total Protein 7.1 g/dL (5.7-8.2)
[2025-03-25 10:36] LABS: Bilirubin, Total 0.5 mg/dL (0.2-1.0)
[2025-03-25 10:49] LABS: Blood Urea Nitrogen 9 mg/dL (9-23); Calcium 8.6 mg/dL (8.7-10.4); Glucose 143 mg/dL (74-106); Potassium 3.4 mmol/L (3.5-5.1)
--- NOTE | 2025-03-25 13:37 | DVHINCON2 ---
Date of service: Mar 25, 2025 Reason for Consultation umbilical hernia with drainage History of Present Illness HPI 44-year-old female with past medical history of umbilical hernia presented to the hospital with a wound around the umbilical hernia with draianage for the past 4 days. She was seen at another hospital and was sent home with antibiotic. Home Meds Active Scripts Losartan Potassium (Losartan Potassium) 50 Mg Tab, 1 TAB PO DAILY for 30 Days, #30 TAB 3 Refills Prov:VARGAS MAR MD 03/17/24 Furosemide (Lasix) 20 Mg Tb, 1 TAB PO QAM for 30 Days, #30 TAB 3 Refills Prov:VARGAS MAR MD 03/17/24 Metoprolol Succinate (Toprol Xl) 25 Mg Tab, 25 MG PO DAILY for 30 Days, #30 TAB 3 Refills Prov:VARGAS MAR MD 03/17/24 Aspirin (Aspirin Low Dose) 81 Mg Tab, 81 MG PO DAILY for 30 Days, #30 TAB 3 Refills Prov:VARGAS MAR MD 03/17/24 Reported Medications Losartan Potassium (Losartan Potassium) 25 Mg Tab, 1 TAB PO DAILY 03/23/25 Metformin Hydrochloride (Metformin Hcl) 500 Mg Tab, 1 TAB PO DAILY 03/23/25 Ferrous Sulfate (Ferrous Sulfate) 325 Mg Tab, 1 TAB PO BID 03/23/25 Discontinued Reported Medications Ferrous Gluconate (IRON) 27 Mg Tab, 27 MG PO, TAB 03/13/24 Discontinued Scripts Acetaminophen (Acetaminophen) 500 Mg Tab, 500 MG PO Q4HPRN, #30 TAB 0 Refills Prov:ANA GREWAL 10/08/24 Amoxicillin & Pot Clavulanate (Amoxicillin/Potassium Cla) 875 Mg Tab, 1 TAB PO BID for 5 Days, #10 TAB 0 Refills Prov:ANA GREWAL 10/08/24 Azithromycin (Azithromycin) 250 Mg Tab, 250 MG PO DAILY MDD 500 for 5 Days, #6 TAB 0 Refills 2 TABLETS ORALLY ON DAY ONE, THEN 1 TABLET ORALLY DAILY FOR 4 DAYS Prov:ANA GREWAL 10/08/24 Atorvastatin Calcium (ATORVASTATIN CALCIUM) 20 Mg Tab, 20 MG PO HS for 30 Days, #30 TAB 3 Refills Prov:VARGAS MAR MD 03/17/24 Past Medical History Cardiac: HTN Pulmonary: No pertinent Hx Central Nervous System: No pertinent Hx GI: No pertinent Hx Hemotology/Oncology: No pertinent Hx Hepatobiliary: No pertinent Hx Psychiatric: No pertinent Hx Musculoskeletal: No pertinent Hx Rheumotologic: No pertinent Hx 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, Human papilloma virus ENT: No pertinent Hx Renal/: No pertinent Hx Endocrine: NIDDM Dermatology: No pertinent Hx Past Surgical History: Cholecystectomy, Tubal ligation, Other (bowel resection) Patient Family History: Diabetes mellitus G8 MOTHER FH: heart disease G8 MOTHER Hypercholesterolemia G8 FATHER Hypertension G8 FATHER Smoker: No Hx (Negative) Alocohol: None Drugs: None Review of Systems Constitutional: No symptom reported Ears, Nose, & Throat: No symptom reported Eyes: No symptom reported Pulmonary/Respiratory: No symptom reported Cardiovascular: No symptom reported Gastrointestinal: Abdominal Pain Genitourinary: No symptom reported Musculoskeletal: No symptom reported Skin: No symptom reported Psychiatric: No symptom reported Endocrine: No symptom reported Hemotologic/Lymphatic: No symptom reported H&P Exam Vital Signs Vital Signs Date Time Temp Pulse Resp B/P (MAP) Pulse Ox O2 Delivery O2 Flow Rate FiO2 03/25/25 10:15 126/90 03/25/25 09:21 97.9 64 17 92 97.9 03/25/25 08:00 Room Air* 0 21 General Appeara: Well developed, Well nourished, Obese Head Exam: Normal inspection Neck Exam: Normal inspection Eye Exam: bilateral eye PERRL Pulmonary/Respiratory: Normal inspection Cardiovascular/Chest: Normal inspection, Regular rate Abdominal Pain Onset Location: Periumbilical [employer] Exam: Normal hearing Thoughts/Psych: Normal thought pattern Skin Exam: Other (drainage from umbilicus) Labs/Xrays Labs Test 03/25/25 10:48 03/25/25 09:15 03/24/25 04:55 03/23/25 18:31 Range/Units POC Glucose 164 H 70-106 mg/dl White Blood Count 7.8 4.4-10.8 10^3/uL Red Blood Count 4.78 4.0-5.20 10^6/uL Hemoglobin 9.9 L 12.2-16.2 g/dL Hematocrit 31.8 L 36.0-46.0 % Mean Corpuscular Volume 66.5 L 80.0-100.0 fL Mean Corpuscular Hemoglobin 20.8 L 28.0-32.0 pg Mean Corpuscular Hemoglobin Concent 31.3 L 32.0-36.0 g/dL Red Cell Distribution Width 18.4 H 11.8-14.3 % Platelet Count 355 140-450 10^3/uL Mean Platelet Volume 8.2 6.9-10.8 fL Neutrophils (%) (Auto) 69.9 37.0-80.0 % Lymphocytes (%) (Auto) 22.3 10.0-50.0 % Monocytes (%) (Auto) 3.8 0.0-12.0 % Eosinophils (%) (Auto) 3.7 0.0-7.0 % Basophils (%) (Auto) 0.3 0.0-2.0 % Neutrophils # (Auto) 5.5 1.6-8.6 10 ^3/uL Lymphocytes # (Auto) 1.7 0.4-5.4 10 ^3/uL Monocytes # (Auto) 0.3 0-1.3 10 ^3/uL Eosinophils # (Auto) 0.3 0-0.8 10 ^3/uL Basophils # (Auto) 0 0-0.2 10 ^3/uL Nucleated Red Blood Cells 0.1 % Sodium Level 141 136-145 mmol/L Potassium Level 3.4 L 3.5-5.1 mmol/L Chloride Level 106 98-107 mmol/L Carbon Dioxide Level 28 20-31 mmol/L Anion Gap 7 5-15 Blood Urea Nitrogen 9 9-23 mg/dL Creatinine 0.73 0.550-1.02 mg/dL Glomerular Filtration Rate Calc 103 >90 mL/min BUN/Creatinine Ratio 12.3 10.0-20.0 Serum Glucose 143 H 74-106 mg/dL Calcium Level 8.6 L 8.7-10.4 mg/dL Total Bilirubin 0.5 0.2-1.0 mg/dL Aspartate Amino Transferase (AST) 17 13-40 U/L Alanine Aminotransferase (ALT) 15 7-40 U/L Alkaline Phosphatase 55 46-116 U/L Total Protein 7.1 5.7-8.2 g/dL Albumin 3.7 3.2-4.8 g/dL B-Type Natriuretic Peptide 24.34 0-100 pg/mL Vitamin B12 Level 457 211-911 pg/mL Vitamin D 25-Hydroxy 30.6 30.0-100 ng/mL Thyroid Stimulating Hormone (TSH) 1.83 0.55-4.78 uIU/mL Prothrombin Time 10.6 9.3-11.8 sec Prothrombin Time INR 1.00 0.9-1.15 Activated Partial Thromboplast Time 28.9 24.5-34.5 SEC Test 03/23/25 10:21 03/23/25 10:16 Range/Units Platelet Estimate Adequate Large Platelets Few Hypochromasia (manual) Marked Anisocytosis (manual) Slight Microcytosis Marked Erythrocyte Sedimentation Rate 21 H 0-20 mm/hr Lactic Acid Level 0.7 0.4-2.0 mmol/L C-Reactive Protein High Sensitivity 1.52 H <1.0 mg/dL Urine Color Light-yellow Yellow Urine Clarity Clear Clear Urine pH 5.0 5.0-9.0 Urine Specific [place] 1.015 1.001-1.035 Urine Protein Negative Negative Urine Ketones Negative Negative Urine Blood 1+ H Negative /uL Urine Nitrite Negative Negative Urine Bilirubin Negative Negative Urine Urobilinogen Normal Negative mg/dL Urine Leukocyte Esterase Negative Negative /uL Urine RBC 1 0 - 4 /hpf Urine Microscopic WBC < 1 0-5 /HPF Urine Squamous Epithelial Cells Few <5 /hpf Urine Bacteria None seen None Seen /hpf Urine Glucose Normal Normal mg/dL Urine Opiates Screen Neg NEGATIVE Urine Fentanyl Screen Neg NEGATIVE Urine Barbiturates Screen Neg NEGATIVE Urine Phencyclidine Screen Neg NEGATIVE Urine Amphetamines Screen Neg NEGATIVE Urine Benzodiazepines Screen Neg NEGATIVE Urine Cocaine Screen Neg NEGATIVE Urine Cannabinoids Screen Neg NEGATIVE Microbiology Date/Time Source Procedure Growth Status 03/24/25 14:15 Abdomen Gram Stain - Final Resulted 03/24/25 14:15 Abdomen Wound Culture - Preliminary Resulted 03/23/25 10:21 Blood Blood Culture - Preliminary NO GROWTH AFTER 48 HOURS OF INCUBATION. Resulted Assessment/Plan Primary Diagnosis umbilical hernia umbilical wound with drainage Plan umbilical hernia with wound , patient states she has had the hernia for over a year and recently the wound became infected and has become progressively worse and antibiotics have not helped. visible umbilical hernia with wound no drainage seen on exam, area tender to palpation Plan: continue iv antibiotics no surgical intervention at this time patient to follow up in surgery clinic for repair of umbilical hernia once the infection resolves Dr. Hays agrees with plan Plan discussed with: Patient, Other (Dr. hays ) Visit Coding Surgery Date of Service if different f: Mar 25, 2025 Billing Provider: JARAD HAYS MD Surgery Visit Codes: [id number] INP/OBS CARE(HIGH) JESSIE VERA NP Mar 25, 2025 13:36
--- NOTE | 2025-03-25 19:56 | DVHPNRES ---
Progress Note Date Seen: Mar 25, 2025 Resident Creating Document: ERICKA DU RESIDENT Medical Necessity Reason Pt with a Central, PICC or Fol: No Subjective Review of Systems Patient is a 44-year-old female with past medical history of umbilical hernia, diabetes, hypertension who came to the hospital due to a open wound on the lower side of her umbilical hernia, with draining pus dizziness. Patient also states that about 1 week ago she went to a different hospital where she was given Keflex for 1 week. She states that her wound has not improved and continues to drain pus, is painful. Past surgical history: Cholecystectomy, part of colon removed, tubal ligation Personal history: Patient denies any smoking, alcohol use, drug use 03/24/2025 Patient seen in the holding. Patient is alert x3, in mild distress, she complains of a open wound which has been draining pus on her umbilical hernia since 3 weeks cramping of her abdomen which comes and goes and increased with changing positions. She states that her umbilical hernia has been growing in size since 10 years after her normal delivery. CT scan shows Fat containing umbilical hernia. Fat stranding and skin thickening along the dependent portion of the hernia consistent with cellulitis. Hepatic steatosis, Cholecystectomy. Vitamin-D was given. 03/25/2025 Patient seen at bedside. Patient is alert x3, in no distress, she complains of abdominal pain when changing positions and has to hold her hernia while walking. Surgery was consulted and advised continue iv antibiotics , no surgical intervention at this time , and the patient to follow up in surgery clinic for repair of umbilical hernia once the infection resolves. Objective vital signs Vital Sign Date Time Temp Pulse Resp B/P (MAP) Pulse Ox O2 Delivery O2 Flow Rate FiO2 03/25/25 16:52 97.9 77 19 123/71 (88) 94 97.9 03/25/25 08:00 Room Air* 0 21 Total Intake and Output 03/24/25 03/24/25 03/25/25 15:00 23:00 07:00 Intake Total 50 ml 100 ml 0 ml Balance 50 ml 100 ml 0 ml medications Current Medications Medications Dose Ordered Sig/Braydon Route Start Time Stop Time Status Last Admin Dose Admin Acetaminophen/ Hydrocodone Bitart 1 tab Q4HP PRN PO 03/23/25 14:00 Ondansetron HCl 4 mg Q4HP PRN IV 03/23/25 14:00 Docusate Sodium 100 mg BIDPRN PRN PO 03/23/25 14:00 Acetaminophen 650 mg Q6HP PRN PO 03/23/25 14:00 03/24/25 22:49 650 MG Losartan Potassium 50 mg DAILY PO 03/24/25 10:00 UNV Aspirin 81 mg DAILY PO 03/24/25 10:00 03/25/25 10:14 81 MG Ferrous Sulfate 325 mg BID PO 03/23/25 22:00 03/25/25 10:14 325 MG Losartan Potassium 25 mg DAILY PO 03/24/25 10:00 03/25/25 10:15 25 MG Atorvastatin Calcium 10 mg HS PO 03/23/25 22:00 03/24/25 22:14 10 MG Clindamycin Phosphate 50 ml @ 50 mls/hr Q8HR IV 03/23/25 14:50 03/25/25 13:23 50 MLS/HR Nystatin 1 applic TID TOP 03/24/25 14:00 03/25/25 13:23 1 APPLIC Fluconazole 100 ml @ 100 mls/hr DAILY IV 03/25/25 10:00 03/25/25 10:14 100 MLS/HR Diagnostic Test (Pha) 1 strip ACHS 03/24/25 17:00 03/25/25 16:32 1 STRIP Insulin Human Regular ACHS SC 03/24/25 17:00 03/25/25 10:57 3 UNITS Dextrose 50 ml UD PRN IV 03/24/25 14:30 Pantoprazole Sodium 40 mg DAILY@0600 PO 03/25/25 06:00 03/25/25 06:10 40 MG Ergocalciferol 50,000 unit Q7D PO 03/24/25 19:30 03/24/25 23:22 50,000 UNIT Examination General: Patient alert and oriented in person, place and time. Patient following commands. HEENT: Normocephalic, atraumatic, moist mucous membranes Respiratory/pulmonary: Clear lungs bilaterally, vesicular murmurs present in almost all lung haas, no associated crackles or wheezes. Cardiovascular: Normal heart sounds S1 and S2 with no associated murmurs Abdomen: Umbilical hernia which is reducible, has a open wound with draining pus. Obese abdomen Extremities: There is no peripheral edema present at the lower extremities. Peripheral Pulses: 3+ Radial (R). 3+ Radial (L). 3+ Dorsalis pedis (R). 3+ Dorsalis pedis(L) Skin: No rashes or pruritus, there is no sacral edema present at this time. Neurological: Intact cranial nerves with no focal neurologic deficits laboratory and microbiology Laboratory Tests 03/25/25 09:15 Test 03/25/25 09:15 Range/Units Serum Glucose 143 H 74-106 mg/dL Microbiology Date/Time Source Procedure Growth Status 03/24/25 14:15 Abdomen Gram Stain - Final Resulted 03/24/25 14:15 Abdomen Wound Culture - Preliminary Resulted 03/23/25 10:21 Blood Blood Culture - Preliminary NO GROWTH AFTER 48 HOURS OF INCUBATION. Resulted Problem List/Assessment/Plan Problem List/Assessment/Plan # umbilical hernia with skin complications by cellulitis # ? Abdominal wall cellulitis likely from above - started on clindamycin - nystatin topical , IV fluconazole - elevated ESR and CRP likely due to above - CT ABD/ pelvis showed fat containing umbilical hernia with findings suggestive of cellulitis - wound consult placed and culture ordered # hepatic steatosis likely MASH - outpatient follow-up with GI # Mild microcytic hypochromic anemia likely due to iron deficiency - monitor labs - ferrous sulfate p.o. # uncontrolled hypertension - continue losartan - continue monitoring blood pressur # Obesity BMI 49.7-life style modifications, dietary changes # Type 2 diabetes Mottled ISS DVT PPX: Ambulating not indicated PUD PPX: Protonix 40 mg Diet: Cardiac diet Goals of care addressed with the patient for more than 27 minutes: Full code status Case discussed with Dr. Schaefer, patient and nurse Plan discussed with: Patient My Orders My Orders Orders - ERICKA DU Procedure Category Date Status Time * Surgical Consult CONS 03/25/25 Transmitted Date of Service: Mar 25, 2025 Billing Provider: ANGEL SCHAEFER MD Common Visit Codes: [id number] INP/OBS CARE(HIGH) ERICKA DU Mar 25, 2025 19:56 ANGEL SCHAEFER MD Mar 25, 2025 21:25
[2025-03-26 01:02] VITALS: BP 143/80; PULSE 59; RESP 17; TEMP 98.5; O2SAT 97
[2025-03-26 05:00] VITALS: BP 128/86; PULSE 71; RESP 18; TEMP 97.5; O2SAT 97
[2025-03-26 08:39] LABS: Potassium 3.9 mmol/L (3.5-5.1); Sodium 142 mmol/L (136-145)
[2025-03-26 08:40] VITALS: BP 135/86; PULSE 56; RESP 16; TEMP 98.2; O2SAT 98
[2025-03-26 08:40] LABS: Anion Gap 6 (5-15); Carbon Dioxide 29 mmol/L (20-31)
[2025-03-26 08:46] LABS: BUN/Creatinine Ratio 11.7 (10.0-20.0); Blood Urea Nitrogen 9 mg/dL (9-23)
[2025-03-26 08:55] LABS: Calcium 8.5 mg/dL (8.7-10.4); Chloride 107 mmol/L (98-107); Glucose 117 mg/dL (74-106)
[2025-03-26] MEDS: POTASSIUM EFFERVESENT TAB 25 MEQ PO ONE (09:30)
[2025-03-26] MEDS ORDERED: ERGO1CAP23 PO (10:12)
[2025-03-26] MEDS ORDERED: NYS15PW TOP (10:12)
[2025-03-26] MEDS ORDERED: CEPH250C PO ×2 (10:12→11:11)
--- NOTE | 2025-03-26 10:32 | DVHDSRES ---
Discharge Summary Date of Admission Resident Creating Document: ERICKA DU Mar 23, 2025 at 13:59 Date of Discharge: Mar 26, 2025 Admitting Diagnosis Umbilical hernia with draining open wound Labs/Diagnostic Data: Laboratory Results Test 03/26/25 07:38 03/26/25 06:25 03/25/25 09:15 03/24/25 04:55 Sodium Level 142 mmol/L (136-145) Potassium Level 3.9 mmol/L (3.5-5.1) Chloride Level 107 mmol/L (98-107) Carbon Dioxide Level 29 mmol/L (20-31) Anion Gap 6 (5-15) Blood Urea Nitrogen 9 mg/dL (9-23) Creatinine 0.77 mg/dL (0.550-1.02) Glomerular Filtration Rate Calc 97 mL/min (>90) BUN/Creatinine Ratio 11.7 (10.0-20.0) Serum Glucose 117 mg/dL (74-106) Calcium Level 8.5 mg/dL (8.7-10.4) POC Glucose 120 mg/dl (70-106) White Blood Count 7.8 10^3/uL (4.4-10.8) Red Blood Count 4.78 10^6/uL (4.0-5.20) Hemoglobin 9.9 g/dL (12.2-16.2) Hematocrit 31.8 % (36.0-46.0) Mean Corpuscular Volume 66.5 fL (80.0-100.0) Mean Corpuscular Hemoglobin 20.8 pg (28.0-32.0) Mean Corpuscular Hemoglobin Concent 31.3 g/dL (32.0-36.0) Red Cell Distribution Width 18.4 % (11.8-14.3) Platelet Count 355 10^3/uL (140-450) Mean Platelet Volume 8.2 fL (6.9-10.8) Neutrophils (%) (Auto) 69.9 % (37.0-80.0) Lymphocytes (%) (Auto) 22.3 % (10.0-50.0) Monocytes (%) (Auto) 3.8 % (0.0-12.0) Eosinophils (%) (Auto) 3.7 % (0.0-7.0) Basophils (%) (Auto) 0.3 % (0.0-2.0) Neutrophils # (Auto) 5.5 10 ^3/uL (1.6-8.6) Lymphocytes # (Auto) 1.7 10 ^3/uL (0.4-5.4) Monocytes # (Auto) 0.3 10 ^3/uL (0-1.3) Eosinophils # (Auto) 0.3 10 ^3/uL (0-0.8) Basophils # (Auto) 0 10 ^3/uL (0-0.2) Nucleated Red Blood Cells 0.1 % Total Bilirubin 0.5 mg/dL (0.2-1.0) Aspartate Amino Transferase (AST) 17 U/L (13-40) Alanine Aminotransferase (ALT) 15 U/L (7-40) Alkaline Phosphatase 55 U/L (46-116) Total Protein 7.1 g/dL (5.7-8.2) Albumin 3.7 g/dL (3.2-4.8) B-Type Natriuretic Peptide 24.34 pg/mL (0-100) Vitamin B12 Level 457 pg/mL (211-911) Vitamin D 25-Hydroxy 30.6 ng/mL (30.0-100) Thyroid Stimulating Hormone (TSH) 1.83 uIU/mL (0.55-4.78) Test 03/23/25 18:31 03/23/25 10:21 03/23/25 10:16 Prothrombin Time 10.6 sec (9.3-11.8) Prothrombin Time INR 1.00 (0.9-1.15) Activated Partial Thromboplast Time 28.9 SEC (24.5-34.5) Platelet Estimate Adequate Large Platelets Few Hypochromasia (manual) Marked Anisocytosis (manual) Slight Microcytosis Marked Erythrocyte Sedimentation Rate 21 mm/hr (0-20) Lactic Acid Level 0.7 mmol/L (0.4-2.0) C-Reactive Protein High Sensitivity 1.52 mg/dL (<1.0) Urine Color Light-yellow (Yellow) Urine Clarity Clear (Clear) Urine pH 5.0 (5.0-9.0) Urine Specific [place] 1.015 (1.001-1.035) Urine Protein Negative (Negative) Urine Ketones Negative (Negative) Urine Blood 1+ /uL (Negative) Urine Nitrite Negative (Negative) Urine Bilirubin Negative (Negative) Urine Urobilinogen Normal mg/dL (Negative) Urine Leukocyte Esterase Negative /uL (Negative) Urine RBC 1 /hpf (0 - 4) Urine Microscopic WBC < 1 /HPF (0-5) Urine Squamous Epithelial Cells Few /hpf (<5) Urine Bacteria None seen /hpf (None Seen) Urine Glucose Normal mg/dL (Normal) Urine Opiates Screen Neg (NEGATIVE) Urine Fentanyl Screen Neg (NEGATIVE) Urine Barbiturates Screen Neg (NEGATIVE) Urine Phencyclidine Screen Neg (NEGATIVE) Urine Amphetamines Screen Neg (NEGATIVE) Urine Benzodiazepines Screen Neg (NEGATIVE) Urine Cocaine Screen Neg (NEGATIVE) Urine Cannabinoids Screen Neg (NEGATIVE) Other Laboratory Tests 03/26/25 07:38 03/25/25 09:15 Brief Hx & Hospital Course: Patient is a 44-year-old female with past medical history of umbilical hernia, diabetes, hypertension who came to the hospital due to a open wound on the lower side of her umbilical hernia, with draining pus dizziness. Patient also states that about 1 week ago she went to a different hospital where she was given Keflex for 1 week. She states that her wound has not improved and continues to drain pus, is painful. Past surgical history: Cholecystectomy, part of colon removed, tubal ligation Personal history: Patient denies any smoking, alcohol use, drug use Brief hospital course: Patient came to the hospital with a umbilical hernia with skin complications most likely cellulitis, abdominal wall cellulitis with pus draining, patient was started on clindamycin, nystatin topical, IV fluconazole. Her ESR and CRP are elevated likely due to the above and abdominal CT, pelvis showed fat containing umbilical hernia with findings suggestive of cellulitis. Wound consult was placed and wound culture was ordered which showed no bacterial growth. surgery was consulted and stated to continue iv antibiotics , no surgical intervention at this time , and the patient to follow up in surgery clinic for repair of umbilical hernia once the infection resolves. patient had hepatic steatosis on CT likely due to MASH. patient is advised to follow-up outpatient with GI. patient had iron-deficiency anemia and labs were monitored and ferrous sulfate was given. For her hypertension blood pressure was continuously monitored and given losartan. For her obesity, patient was advised lifestyle modifications and dietary changes for more than 17 minutes, diabetes moderate ISS was given. Patient was given Protonix 40 mg for peptic ulcer disease prophylaxis. Patient is stable for discharge, states that her abdominal pain and cramping have improved. Patient is to take Keflex to 15-10 days q.6, nystatin 2 times a day. Patient is to follow-up outpatient with surgery clinic after the infection has resolved and discharge Clinic in 1 week, patient communicated understanding of her discharge plan and agreed. General: Patient alert and oriented in person, place and time. Patient following commands. HEENT: Normocephalic, atraumatic, moist mucous membranes Respiratory/pulmonary: Clear lungs bilaterally, vesicular murmurs present in almost all lung haas, no associated crackles or wheezes. Cardiovascular: Normal heart sounds S1 and S2 with no associated murmurs Abdomen: Umbilical hernia which is reducible, has a open wound with draining pus on underside of hernia. Obese abdomen Extremities: There is no peripheral edema present at the lower extremities. Peripheral Pulses: 3+ Radial (R). 3+ Radial (L). 3+ Dorsalis pedis (R). 3+ Dorsalis pedis(L) Skin: No rashes or pruritus, there is no sacral edema present at this time. Neurological: Intact cranial nerves with no focal neurologic deficits Operations or Procedures ORDERING PHYSICIAN: SAUD SERVIN NP PROCEDURE(s): ABPLIV - CT AB PEL WITH IV CON ONLY REASON: Draining umbilical hernia ORDER NUMBER(s): [id number], ACCESSION NUMBER(s): [id number] Exam: CT CT AB PEL WITH IV CON ONLY History: Draining umbilical hernia. Comparison Study: CT CT AB PEL WITH IV CON ONLY on DOS: 11/13/24 Contrast: Type of contrast: Contrast injected: Contrast wasted: 0 TECHNIQUE: CT of the abdomen pelvis with intravenous contrast. Coronal sagittal reformatted images were submitted. Radiation Dose Information: CT Dose: CTDI volume is 23.75 mGy. Dose-length product is 3.92 mGy*cm FINDINGS: Lung Bases: No acute or significant lung base finding. Normal heart size. No pleural or pericardial effusion. Liver: The liver is normal in size. No focal lesions. Normal hepatic vascular enhancement. Diffusely hypoattenuating liver parenchyma consistent with hepatic steatosis. Gallbladder and Biliary Tree: Cholecystectomy. No biliary ductal dilatation. Spleen: Unremarkable Pancreas: The pancreas is normal in appearance without focal lesions or abnormal enhancement. Adrenal Glands: Unremarkable Kidneys: Kidneys demonstrate normal symmetric enhancement without focal lesions, calculi or hydronephrosis. Bladder: Unremarkable. Bowel: The stomach is grossly normal in appearance. Small bowel and colon are normal in caliber and distribution. The appendix is visualized and is normal. Intraperitoneal cavity. Lymphadenopathy: No mesenteric, retroperitoneal or periportal lymphadenopathy. Abdominal Wall and Mesentery: Fat containing umbilical hernia. Fascial defect measures 5.4 cm. There is fat stranding and thickening of the skin along the dependent portion of the umbilical hernia. Vasculature: The visualized abdominal aorta is normal in size and caliber. Abdominal and pelvic vessels demonstrate normal enhancement. Pelvic Organs: Unremarkable Musculoskeletal: No aggressive focal bony lesions, acute fractures or dislocation. Soft tissues: Unremarkable. IMPRESSION: 1. Fat containing umbilical hernia. Fat stranding and skin thickening along the dependent portion of the hernia consistent with cellulitis. 2. Hepatic steatosis. 3. Cholecystectomy. All CT scans at this medical facility are performed using dose modulation techniques as appropriate to a performed exam including the following: Automated exposure control was utilized; adjustment of the MA and/or KV according to patient size; and use of iterative reconstruction technique. ORDERING PHYSICIAN: REENA CHAN PROCEDURE(s): CXR1 - CHEST XRAY 1 VIEW REASON: Pre-Op ORDER NUMBER(s): [id number], ACCESSION NUMBER(s): [id number] CHEST RADIOGRAPH REASON FOR EXAM: Pre-Op COMPARISON: XY CHEST TWO VIEWS ROUTINE on DOS: 10/08/24, XY CHEST XRAY 1 VIEW on DOS: 03/14/24, XY CHEST PORTABLE on DOS: 03/13/24 TECHNIQUE: One view of the chest is provided FINDINGS: Pulmonary venous congestion.There is no significant pleural effusion. No acute bony abnormality is identified. IMPRESSION: No radiographic evidence of acute cardiopulmonary process. ATED BY: MEHDI ROME MD DICTATED DATE/TIME: 03/23/251950 Condition at Discharge: Stable Final Diagnosis/Problems List # umbilical hernia with skin complications by cellulitis # Abdominal wall cellulitis likely from above # hepatic steatosis likely MASH # Mild microcytic hypochromic anemia likely due to iron deficiency # uncontrolled hypertension # Obesity BMI 49.7-life style modifications, dietary changes # Type 2 diabetes Discharge Disposition: Home Discharge Instruct/Medications Diet: Cardiac 2g Na,low cholest Activity: No Restrictions, As Tolerated Follow Up/Referral: Follow-up with discharge Clinic in 1 week Follow-up With outpatient surgery in 1 week Medications: Take Keflex 500 q.6 for 5 days Take vitamin-D, iron supplements Topical nystatin powder twice daily as needed Take probiotics outpatient Scheduled Aspirin (Aspirin Low Dose), 81 MG PO DAILY Cephalexin (Keflex Capsule), 250 MG PO Q6HR Ergocalciferol (Vitamin D 68796 Unit), 50,000 UNIT PO Q7D Ferrous Sulfate (Ferrous Sulfate), 1 TAB PO BID, (Reported) Furosemide (Lasix), 1 TAB PO QAM Losartan Potassium (Losartan Potassium), 1 TAB PO DAILY Losartan Potassium (Losartan Potassium), 1 TAB PO DAILY, (Reported) Metformin Hydrochloride (Metformin Hcl), 1 TAB PO DAILY, (Reported) Metoprolol Succinate (Toprol Xl), 25 MG PO DAILY Nystatin (Mycostatin), 1 APPLIC TOP TID Discontinued Medications Acetaminophen (Acetaminophen), 500 MG PO Q4HPRN Amoxicillin & Pot Clavulanate (Amoxicillin/Potassium Cla), 1 TAB PO BID Atorvastatin Calcium (Atorvastatin Calcium), 20 MG PO HS Azithromycin (Azithromycin), 250 MG PO DAILY Ferrous Gluconate (Iron), 27 MG PO, (Reported) Discharge Statement: "Patient was advised to return to the ER or call 911 if any headaches, dizziness, shortness of breath, chest pain, abdominal pain, bleeding, fevers, or worsening of medical condition. Patient was counseled about treatment plan, medications, possible side effects, patientverbalized understanding. All questions were answered to the best of my ability. This discharge took greater then 30 minutes in planning, reviewing documentation, counseling the patient, and discussing with other team members." ASSESSMENT ASSESSMENT Assessment Umbilical hernia with draining open wound Date of Service: Mar 26, 2025 Billing Provider: ANGEL SWENSON MD Common Visit Codes: 86379-WDJ/OBS DISCH DAY >30min ERICKA DU RESIDENT Mar 26, 2025 10:32 ANGEL SWENSON MD Mar 26, 2025 23:44
[2025-03-26 11:38] VITALS: BP 135/86; TEMP 36.8
[2025-03-26 12:10] VITALS: BP 120/76; PULSE 59; RESP 17; TEMP 97.5; O2SAT 95
== END 2025-03-26 12:20 | disposition home or self-care (01) | DRG 383 ==
LOC: ER 09:07 → OVERFLOW 13:59 → CENTRAL 03-24 23:21
PROVIDERS: ADMIT Internal Medicine; ATTEND Nurse Practitioner Family
DX: L03.311 Cellulitis of abdominal wall (principal); K76.0 Fatty (change of) liver, not elsewhere classified; I50.9 Heart failure, unspecified; D50.9 Iron deficiency anemia, unspecified; E11.9 Type 2 diabetes mellitus without complications; I10 Essential (primary) hypertension; E66.9 Obesity, unspecified; K42.9 Umbilical hernia without obstruction or gangrene; Z68.42 Body mass index [BMI] 45.0-49.9, adult; Z88.8 Allergy status to other drugs, medicaments and biological substances; Z90.49 Acquired absence of other specified parts of digestive tract; Z79.84 Long term (current) use of oral hypoglycemic drugs; Z88.1 Allergy status to other antibiotic agents
CPT/HCPCS: 36415; 71045; 74177; 80048; 80053; 80307; 81001; 82306; 82607; 82962; 83605; 83880; 84443; 85025; 85610; 85652; 85730; 86141; 87040; 87205; 96365; G0378; J1450; J1815; J3490